=== PATIENT | female | born 1950 | race Caucasian/White ===

== ENCOUNTER 2016-06-03 05:54 | Day surgery (SDC) | payer MEDICARE, OTHER ==
[~2016-06-03] VITALS: Ht 165.1 cm; Wt 95.0 kg
[~2016-06-03 05:54] MED LIST: APIX5TAB PO; ASPI81TA2 PO; ATEN25TA PO; ATORVASTATIN CA80 MG PO; CHOL2000 PO; CHOL500016 PO; DILT180C2 PO; LEVO25TA4 PO; LISI-334 PO; LISI40TA PO; METF500T9 PO; MULT1TAB52 PO; RANI300C PO; ROPI0.5T PO; VENL75TA PO
[2016-06-03] MEDS ORDERED: LIDOCAINE 1% 1 ML SYRINGE. ID PRN (07:00)
[2016-06-03] MEDS ORDERED: FENTANYL PF 100 MCG/2 ML VIAL. IV PRN (07:00)
[2016-06-03] MEDS ORDERED: ONDANSETRON PF 4 MG/2 ML VIAL. IV PRN (07:00)
[2016-06-03] MEDS ORDERED: IV RINGERS,LACTATED 1000ML 1,000 ML IV SCH (07:00)
[2016-06-03] MEDS ORDERED: PROCHLORPERAZINE 10 MG/2 ML VIAL. IV PRN (07:00)
[2016-06-03] MEDS ORDERED: FAMOTIDINE 20 MG/2 ML VIAL ONE (07:08)
[2016-06-03] MEDS ORDERED: LIDOCAINE 2% 100 MG/5 ML DISP.SYRIN. ONE (07:08)
[2016-06-03] MEDS ORDERED: DEXAMETHASONE SOD PHOS 20 MG/5 ML VIAL. ONE (07:08)
[2016-06-03] MEDS ORDERED: ONDANSETRON PF 4 MG/2 ML VIAL. ONE (07:08)
[2016-06-03] MEDS ORDERED: PROPOFOL 20 ML IV ONE (07:08)
[2016-06-03] MEDS ORDERED: FENTANYL PF 100 MCG/2 ML VIAL. ONE ×2 (07:09→08:54)
--- NOTE | 2016-06-03 07:49 | DISCH ---
DISCHARGE INSTRUCTIONS Condition on Discharge Condition on Discharge: Stable Activity After Discharge Activity Instructions for Disc: No restrictions Bathing Instructions: Shower-keep dressing dry Diet after Discharge Diet after Discharge: Diabetic No Calorie Level Wound Incision Care Wound/Incision Care: Ice to area for comfort, Keep wound elevated, Change dressing Other wound/incision instructi: remove dressing 3 days Contacting the after DC Call your doctor for: Concerns you may have Follow-Up Follow up with: Narcisa 10-14 days RAFFAELE ELKINS MD Jun 03, 2016 07:49
[2016-06-03] MEDS ORDERED: HYDR-965 PO (07:51)
[2016-06-03] MEDS ORDERED: CEFAZOLIN 2GM PREMIX 50 ML IV PRN (08:00)
[2016-06-03] MEDS ORDERED: GLYCOPYRROLATE 1 MG/5 ML VIAL. ONE (08:13)
[2016-06-03] MEDS ORDERED: EPHEDRINE PF IN SALINE 50 MG/5 ML DISP.SYRIN. IV ONE (08:15)
[2016-06-03] MEDS ORDERED: SEVOFLURANE > 120 MINUTES. IH ONE (10:05)
[2016-06-03] MEDS: FENTANYL PF 100 MCG/2 ML VIAL. IV PRN ×2 (10:48→11:25)
[2016-06-03] MEDS ORDERED: HYDROCODONE/APAP 7.5/325MG TABLET. PO ONE (11:15)
[2016-06-03 11:36] VITALS: BP 107/51
--- NOTE | 2016-06-03 14:09 | PDOC ---
BRIEF OPERATIVE NOTE Date: Jun 03, 2016 Pre-Op Diagnosis presumed symptomatic hardware s/p ORIF right periprosthetic distal femur fx Post-Op Diagnosis same Procedure Performed screw removal x2 right distal femur Surgeon Narcisa Anesthesia Type: General Blood Loss 25cc Specimens Obtained screws removed Findings above Complications none RAFFAELE ELKINS MD Jun 03, 2016 14:09
--- NOTE | 2016-06-03 18:56 | OP ---
DATE OF SURGERY: 06/03/2016 PREOPERATIVE DIAGNOSES: Presumably symptomatic hardware, medial right knee, status post ORIF, very distal femur periprosthetic fracture above a well-fixated total knee arthroplasty. PREOPERATIVE DIAGNOSES: Presumably symptomatic hardware, medial right knee, status post ORIF, very distal femur periprosthetic fracture above a well-fixated total knee arthroplasty. SURGEON: Rafa Brewster M.D. PROCEDURE: Removal of distal screws x 2. ESTIMATED BLOOD LOSS: About 50 mL. COMPLICATIONS: None. OPERATIVE INDICATIONS: The patient is a 66-year-old female that had a very distal supracondylar right knee fracture above a well-placed total knee arthroplasty that had undergone plate and screw fixation successfully. She has had a difficult time through the rehabilitation process though and is having some difficulty getting her knee flexion back and according to her son, is having significant limitations as well in terms of wanting to put weight on the leg and really getting her strength back. I had gone over with her that while there do appear on her x-rays the possibility of some mild prominence of the hardware along the medial aspect of the knee, I am a little bit skeptical whether this is really the source of her entire problem; however, it is certainly possible and she does have very significant medial symptoms that she is very concerned about and thinks they are impeding her recovery. Certainly on the AP view, there appeared to be 3 screws possibly of concern, 2 more distally, 1 more proximally, but again I really told her that she had a preexisting flexion contracture, I fixed the bone appropriately in anatomic position which would of course not correct the flexion contracture and even her flexion I think is questionable whether it will actually be improved by the procedure of the hardware removal. I cannot really guarantee that her pain would be taken away either necessarily. She understands this and really feels strongly that that is where the pain is coming from and would like to proceed with the hardware removal, having verbalized understanding of the possible medical or other anesthetic complications, infection, among others. All her questions were answered. Consent was obtained and she agrees to proceed with operative evaluation and treatment. OPERATIVE TECHNIQUE: The patient was identified, procedure verified, patient placed in the supine position on the operating table. After adequate amounts of general anesthesia were administered, the right lower extremity was prepped and draped in standard sterile fashion. After timeout was performed, the patient and procedure identified and verified. An incision was made over the distal aspect of the lateral incision. Dissection carried out down to the plate and a guidewire was placed through the screws to further evaluate exactly where which screws may be prominent. It should be noted that among the multiple fluoroscopic views that it was really less chance that there was any hardware actually prominent because they appeared to be in the bone as different views were obtained. Nevertheless, the possibility existed of the 2 most distal screws being very mildly prominent and as we had already talked about this eventuality, proceeded to remove those. I had likewise elected not to replace those screws as the available screws ____ back and for a shorter length, I judged it really would not significantly improve her fixation along with the healing that she had. Therefore, thorough irrigation carried out with normal saline solution. Closure was accomplished with buried #1 Vicryl with the fashion to bury at the skin and subcuticular with Monocryl, Steri-Strips and Mastisol. She was extubated and transferred to postop holding in stable condition having tolerated the procedure well. RAFA BREWSTER MD DR: DANIEL/aidee JOB#: [id number] / [id number]
== END 2016-06-03 12:19 | disposition home or self-care (01) ==
LOC: SURG 05:54
PROVIDERS: ATTEND Orthopaedic Surgery
DX: T85.698A Other mechanical complication of other specified internal prosthetic devices, implants and grafts, initial encounter (principal); I10 Essential (primary) hypertension; E66.9 Obesity, unspecified; K21.9 Gastro-esophageal reflux disease without esophagitis; M19.90 Unspecified osteoarthritis, unspecified site; E11.9 Type 2 diabetes mellitus without complications; F41.9 Anxiety disorder, unspecified; F32.1 Major depressive disorder, single episode, moderate; Z90.710 Acquired absence of both cervix and uterus; Z51.0 Encounter for antineoplastic radiation therapy
CPT/HCPCS: 20680; 76000; 82947; J0690; J0780; J1100; J2405; J2704; J3010; J3490; S0028; J7120

== ENCOUNTER → 2016-11-10 | Outpatient (CLI) | payer MEDICARE, OTHER ==
[~2016-11-10] MED LIST changes: +ASPI-630 PO; -ASPI81TA2 PO; +HYDR-965 PO; +REGADENOSON 0.4 MG/5 ML DISP.SYRIN. IV ONE
--- NOTE | 2016-11-10 12:08 | RAD ---
APPROVED REPORT Test Type: Pharmacological Stress Nurse/Tech: Denice Villarreal R.N. Test Indications: Dyspnea. Cardiac History: CAD, Afib, HTN Medications: SEE EMR Medical History: DM Resting ECG: SB Resting Heart Rate: 53 bpm Resting Blood Pressure: 133/59mmHg Pretest Chest Pain: None Nurse/Tech Notes S1S2, lungs CTA, denied chest pain, SOA or dizziness. Consent: The procedure was explained to the patient in lay terms. Informed consent was witnessed. Tae eout was entered into [employer]. History and Stress Test performed by Denice Villarreal R.N. Pharm. Details Pharmacologic stress testing was performed using 0.4mg per 5ml of regadenoson given intravenously ove r 7-10 seconds. Stress Symptoms Slightly SOA, PINEDA. POST EXERCISE Reason for Termination: Infusion complete Max HR: 96 bpm Max Blood Pressure: 144/58mmHg Blood Pressure response to exercise: Normal blood pressure response during stress. Heart Rate response to exercise: Normal Chest Pain: No. Arrhythmia: Yes. PAC's ST Change: No. INTERPRETATION Stress EKG Conclusion: The resting EKG shows a sinus rhythm with mild nonspecific ST segment changes. The stress EKG shows no significant changes from baseline. No EKG evidence of stress-induced ischemia. Imaging Protocol IMAGE PROTOCOL: Rest Tc-99m/stress Tc-99m 1 day Rest: Stress: Viability: Radiopharm.Tc99m OrndbvxmeVt67e Sestamibi Dwnn32bAq 34mCi Duration 15min. 10min. Img Date 11/10/2016 11/10/2016 Inj-Img Sjuv24dch. 60min. Rest Admin Site:IV - Right HandAdministrator:Gilda Aquino, RT (R)(N) Stress Admin Site: IV - Right HandAdministrator: EDWARD Zuniga, ARRT (R)(N) STRESS DATA End Diast. Vol.95.0mlAv. Heart Rate58.0bpm End Syst. Vol.28.0mlCO Index BSA0.0L/min Myocardial Ixeo844.0gEject. Zpbdqczx97.0% Stress Rates Pk. Fill Rate2.55EDV/secLVtime Pk. Fill 213.66msec Pk. Empty Rate3.33ESV/secLVtime Pk. Lzxen251.22msec 1/3 Pk. Fill1.43EDV/sec Stress Scores Regional WT0.00Summed WT5.00 Regional WM0.00Summed WM0.00 LV Perfusion The stress scans showed no significant defects. The rest scans showed no significant defects. Nuclear imaging shows no reversible ischemia or infarct. Wall Motion Normal left ventricular systolic function with an ejection fraction of greater than 70%. LV Perf. Quant 17 Seg. SSS5.00 17 Seg. SRS4.00 17 Seg. SDS2.00 Stress Defect Extent (% LAD)1.90Rest Defect Extent (% LAD)0.00Rev. Defect Extent (% LAD)1.90 Stress Defect Extent (% LCX) 16.30Rest Defect Extent (% LCX)12.50Rev. Defect Extent (% LCX)5.00 Stress Defect Extent (% RCA)0.00Rest Defect Extent (% RCA)0.00Rev. Defect Extent (% RCA)0.00 Stress Defect Extent (% JOHN)7.80Rest Defect Extent (% JOHN)5.20Rev. Defect Extent (% JOHN)1.70 Conclusion 1. No EKG evidence of stress-induced ischemia. 2. Nuclear imaging shows no reversible ischemia or infarct. 3. Normal left ventricular systolic function with an ejection fraction of greater than 70%. 4. Low risk Lexiscan nuclear stress test.
== END | disposition home or self-care (01) ==
LOC: NM 07:14
PROVIDERS: ATTEND Internal Medicine Cardiovascular Disease
DX: R06.00 Dyspnea, unspecified (principal)
CPT/HCPCS: 78452; 93017; 96374; 96375; 96376; A9500; J2785

== ENCOUNTER 2017-10-19 10:43 | Day surgery (SDC) | payer MEDICARE, OTHER ==
[~2017-10-19 10:43] MED LIST changes: +0.9 % SODIUM CHLORIDE 10 ML DISP.SYRIN. IV; -APIX5TAB PO; -ASPI-630 PO; -ATEN25TA PO; -ATORVASTATIN CA80 MG PO; -CHOL2000 PO; -CHOL500016 PO; -DILT180C2 PO; -HYDR-965 PO; -LEVO25TA4 PO; -LISI-334 PO; -LISI40TA PO; -METF500T9 PO; -MULT1TAB52 PO; -RANI300C PO; -REGADENOSON 0.4 MG/5 ML DISP.SYRIN. IV ONE; -ROPI0.5T PO; -VENL75TA PO
[2017-10-19 11:34] LABS: HEMATOCRIT 36.5 % (36.0-47.0); HEMOGLOBIN 12.4 g/dL (12.0-15.5); MEAN CORPUSCULAR HEMOGLOBIN 31 pg (25-35); MEAN CORPUSCULAR HGB CONC 34 g/dL (31-37); MEAN CORPUSCULAR VOLUME 91 fL (79-100); PLATELET COUNT 157 x10^3/uL (140-400); RED BLOOD COUNT 4.04 x10^6/uL (3.50-5.40); RED CELL DISTRIBUTION WIDTH 14.9 % (11.5-14.5)
[2017-10-19] MEDS: IV RINGERS,LACTATED 1000ML 1,000 ML IV (11:36)
[2017-10-19] MEDS ORDERED: PROPOFOL 20 ML IV (11:53)
[2017-10-19] MEDS ORDERED: LIDOCAINE 2% PF Vial for OR 5 ML VIAL. (11:53)
[2017-10-19 12:06] LABS: ANION GAP 11 (6-14); BLOOD UREA NITROGEN 13 mg/dL (7-20); CALCIUM 8.5 mg/dL (8.5-10.1); CARBON DIOXIDE 25 mmol/L (21-32); CHLORIDE 105 mmol/L (98-107); CREATININE 0.8 mg/dL (0.6-1.0); DIG 0.3 ng/mL (0.9-2.0); GFR 71.1; GLUCOSE 160 mg/dL (70-99); MAGNESIUM 1.5 mg/dL (1.8-2.4); POTASSIUM 4.1 mmol/L (3.5-5.1); SODIUM 141 mmol/L (136-145)
[2017-10-19] MEDS: LIDOCAINE 2% TOPICAL JELLY 5GM TUBE. TP (12:38)
[2017-10-19] MEDS: LIDOCAINE 2% VISCOUS 15 ML SOLUTION. SWSW (12:38)
[2017-10-19] MEDS: BENZOCAINE ONE 20% MUCOSAL SPRAY. MM (12:38)
[2017-10-19] MEDS: MAGNESIUM SULFATE 2GM 50 ML IV (12:39)
== END 2017-10-19 15:56 | disposition home or self-care (01) ==
LOC: SURG 10:43
DX: I48.1 Persistent atrial fibrillation (principal); I34.0 Nonrheumatic mitral (valve) insufficiency; Z88.5 Allergy status to narcotic agent; Z79.82 Long term (current) use of aspirin; Z79.84 Long term (current) use of oral hypoglycemic drugs; Z79.899 Other long term (current) drug therapy; K21.9 Gastro-esophageal reflux disease without esophagitis; Z96.653 Presence of artificial knee joint, bilateral; Z90.710 Acquired absence of both cervix and uterus; Z85.3 Personal history of malignant neoplasm of breast; Z98.42 Cataract extraction status, left eye; Z98.41 Cataract extraction status, right eye; Z96.1 Presence of intraocular lens; Z83.3 Family history of diabetes mellitus; Z80.1 Family history of malignant neoplasm of trachea, bronchus and lung; Z80.3 Family history of malignant neoplasm of breast; Z80.0 Family history of malignant neoplasm of digestive organs; I25.10 Atherosclerotic heart disease of native coronary artery without angina pectoris; E11.36 Type 2 diabetes mellitus with diabetic cataract; I11.0 Hypertensive heart disease with heart failure; I50.9 Heart failure, unspecified; Z79.01 Long term (current) use of anticoagulants; Z87.01 Personal history of pneumonia (recurrent); E66.9 Obesity, unspecified; Z90.13 Acquired absence of bilateral breasts and nipples; M19.90 Unspecified osteoarthritis, unspecified site; F41.9 Anxiety disorder, unspecified; F32.9 Major depressive disorder, single episode, unspecified; Z72.89 Other problems related to lifestyle
CPT/HCPCS: 36415; 76376; 80048; 80162; 83735; 85027; 92960; 93005; 93312; 93320; 93325; J2704; J3475

== ENCOUNTER 2018-02-02 14:44 | Inpatient (IN) | payer MEDICARE, OTHER ==
[~2018-02-02] VITALS: Ht 170.2 cm; Wt 99.8 kg
[~2018-02-02 14:44] MED LIST changes: -0.9 % SODIUM CHLORIDE 10 ML DISP.SYRIN. IV; +AMOX1TAB61 PO; +APIX5TAB PO; +ASPI-630 PO; +ATEN25TA PO; +ATORVASTATIN CA80 MG PO; +BENZ100C PO; +CALC-495 PO; +CALC-496 PO; +CALC600T4 PO; +CETI10TA16 PO; +CHOL2000 PO; +CHOL500016 PO; +DIGO125T PO; +DILT180C2 PO; +DILT180C29 PO; +DRON400T PO; +HYDR-965 PO; +LACT1CAP19 PO; +LEVO25TA4 PO; +LISI-130 PO; +LISI-334 PO; +LORA10TA68 PO; +METF500T9 PO; +METO25TA4 PO; +MONT10TA9 PO; +MULT1TAB52 PO; +PRED-220 PO; +RANI300C PO; +ROPI0.5T PO; +VENL75TA PO
[2018-02-02] MEDS ORDERED: NITROGLYCERIN SUBLINGUAL 0.4 MG BOTTLE OF 25. SL PRN ×2 (15:30→17:30)
[2018-02-02 15:52] LABS: BASO % 1 % (0-3); EOS # 0.1 x10^3/uL (0.0-0.7); EOS % 2 % (0-3); HEMATOCRIT 34.4 % (36.0-47.0); HEMOGLOBIN 11.7 g/dL (12.0-15.5); LYMPH # 1.5 x10^3/uL (1.0-4.8); LYMPH % 18 % (24-48); MEAN CORPUSCULAR HEMOGLOBIN 30 pg (25-35); MEAN CORPUSCULAR HGB CONC 34 g/dL (31-37); MEAN CORPUSCULAR VOLUME 89 fL (79-100); MONO # 0.7 x10^3/uL (0.0-1.1); MONO % 8 % (0-9); NEUT % 72 % (31-73); PLATELET COUNT 161 x10^3/uL (140-400); RED BLOOD COUNT 3.89 x10^6/uL (3.50-5.40); RED CELL DISTRIBUTION WIDTH 16.3 % (11.5-14.5); WHITE BLOOD COUNT 8.4 x10^3/uL (4.0-11.0)
[2018-02-02 16:01] LABS: CALCIUM 9.6 mg/dL (8.5-10.1)
--- NOTE | 2018-02-02 16:01 | PHYS DOC ---
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 fib , high cholesterol, who presents today complaining of 8 out of 10 left sided chest pain that began 4 days ago after she had an ablation procedure at [facility]. Patient states the pain is worse when she takes a deep breath. She is also complaining of a cough. She states the cough began 4 days ago after having the ablation. She states she believes her symptoms right now are putting her back into A. fib. She states she took aspirin as well as a Eliquis this morning. She states she is not attending any relief of her chest pain. PCP Dr. Chito Tobin [employer] at [facility] Review of Systems Review of Systems Constitutional: Denies fever or chills [] Eyes: Denies change in visual acuity, redness, or eye pain [] HENT: Denies nasal congestion or sore throat [] Respiratory: Reports cough, shortness of breath [] Cardiovascular: Reports left-sided chest pain GI: Denies abdominal pain, nausea, vomiting, bloody stools or diarrhea [] : Denies dysuria or hematuria [] Musculoskeletal: Denies back pain or joint pain [] Integument: Denies rash or skin lesions [] Neurologic: Denies headache, focal weakness or sensory changes [] All other systems were reviewed and found to be within normal limits, except as documented in this note. Current Medications Current Medications Current Medications Medications (Trade) Dose Ordered Sig/Peggy Start Time Stop Time Status Last Admin Dose Admin Diltiazem HCl (Cardizem 24hr Cd) 180 mg 1X STAT 02/02/18 15:32 02/02/18 15:33 DC 02/02/18 15:52 180 MG Magnesium Sulfate 50 ml @ 25 mls/hr 1X ONCE 02/02/18 16:30 02/02/18 18:29 02/02/18 16:42 25 MLS/HR Magnesium Sulfate/ Dextrose 100 ml @ 100 mls/hr 1X ONCE 02/02/18 16:45 02/02/18 17:44 UNV Nitroglycerin (Nitrostat) 0.4 mg PRN Q5MIN PRN 02/02/18 15:30 02/02/18 15:53 0.4 MG Allergies Allergies Allergies Coded Allergies Type Severity Reaction Last Updated Verified morphine Allergy Severe SOB, ANAPHYLAXIS 11/27/17 Yes Physical Exam Physical Exam Constitutional: Well developed, well nourished, no acute distress, non-toxic appearance. [] HENT: Normocephalic, atraumatic, bilateral external ears normal, oropharynx moist, no oral exudates, nose normal. [] Eyes: PERRLA, EOMI, conjunctiva normal, no discharge. [] Neck: Normal range of motion, no tenderness, supple, no stridor. [] Cardiovascular: Irregular rhythm, no murmur [] Lungs & Thorax: Bilateral breath sounds clear to auscultation [] Abdomen: Bowel sounds normal, soft, no tenderness, no masses, no pulsatile masses. [] Skin: Warm, dry, no erythema, no rash. [] Back: No tenderness, no CVA tenderness. [] Extremities: No tenderness, no cyanosis, no clubbing, ROM intact, no edema. [] Neurologic: Alert and oriented X 3, normal motor function, normal sensory function, no focal deficits noted. [] Psychologic: Affect normal, judgement normal, mood normal. [] Current Patient Data Vital Signs Vital Signs Date Time Temp Pulse Resp B/P (MAP) Pulse Ox O2 Delivery O2 Flow Rate FiO2 02/02/18 15:53 90 145/77 02/02/18 15:09 98.1 20 96 Room Air 98.1 Lab Values Laboratory Tests Test 02/02/18 15:35 White Blood Count 8.4 x10^3/uL (4.0-11.0) Red Blood Count 3.89 x10^6/uL (3.50-5.40) Hemoglobin 11.7 g/dL (12.0-15.5) L Hematocrit 34.4 % (36.0-47.0) L Mean Corpuscular Volume 89 fL (79-100) Mean Corpuscular Hemoglobin 30 pg (25-35) Mean Corpuscular Hemoglobin Concent 34 g/dL (31-37) Red Cell Distribution Width 16.3 % (11.5-14.5) H Platelet Count 161 x10^3/uL (140-400) Neutrophils (%) (Auto) 72 % (31-73) Lymphocytes (%) (Auto) 18 % (24-48) L Monocytes (%) (Auto) 8 % (0-9) Eosinophils (%) (Auto) 2 % (0-3) Basophils (%) (Auto) 1 % (0-3) Neutrophils # (Auto) 6.0 x10^3uL (1.8-7.7) Lymphocytes # (Auto) 1.5 x10^3/uL (1.0-4.8) Monocytes # (Auto) 0.7 x10^3/uL (0.0-1.1) Eosinophils # (Auto) 0.1 x10^3/uL (0.0-0.7) Basophils # (Auto) 0.0 x10^3/uL (0.0-0.2) Sodium Level 137 mmol/L (136-145) Potassium Level 4.0 mmol/L (3.5-5.1) Chloride Level 102 mmol/L (98-107) Carbon Dioxide Level 29 mmol/L (21-32) Anion Gap 6 (6-14) Blood Urea Nitrogen 18 mg/dL (7-20) Creatinine 1.0 mg/dL (0.6-1.0) Estimated GFR (Cockcroft-Gault) 55.0 BUN/Creatinine Ratio 18 (6-20) Glucose Level 143 mg/dL (70-99) H Calcium Level 9.6 mg/dL (8.5-10.1) Magnesium Level 1.5 mg/dL (1.8-2.4) L Total Bilirubin 0.4 mg/dL (0.2-1.0) Aspartate Amino Transferase (AST) 23 U/L (15-37) Alanine Aminotransferase (ALT) 44 U/L (14-59) Alkaline Phosphatase 93 U/L (46-116) Creatine Kinase 45 U/L (26-192) Creatine Kinase MB (Mass) < 0.5 ng/mL (0.0-3.6) Creatine Kinase MB Relative Index % (0-4) Troponin I Quantitative 0.286 ng/mL (0.000-0.055) PK-Epk-Q-Type Natriuretic Peptide 2354 pg/mL (0-124) H Total Protein 7.2 g/dL (6.4-8.2) Albumin 3.3 g/dL (3.4-5.0) L Albumin/Globulin Ratio 0.8 (1.0-1.7) L Thyroid Stimulating Hormone (TSH) 3.390 uIU/mL (0.358-3.74) Laboratory Tests 02/02/18 15:35 Laboratory Tests 02/02/18 15:35 EKG EKG 15:[address] Patricio archuleta heart rate 94 no STEMI.[] Radiology/Procedures Radiology/Procedures []PROCEDURE: PORTABLE CHEST 1V PORTABLE CHEST 1V Clinical indications: PT. STATES IN ATRIAL FIBRILLATION, HAD ablation DONE THURSDAY, HAVING SOME CHEST PAIN AGAIN. COMPARISON: September 17, 2017 chest x-ray. Findings: Decreased lung volumes are again evident. No acute lung infiltrate or pleural effusion or pulmonary edema or lung mass or pneumothorax is seen. The heart size, pulmonary vasculature, mediastinum and both radha are stable. Impression: No acute radiographic abnormality is seen. Electronically signed by: Erasmo Vance MD (02/02/2018 4:09 PM) [facility] DICTATED and SIGNED BY: ERASMO VANCE MD DATE: 02/02/18 1608 Course & Med Decision Making Course & Med Decision Making Pertinent Labs and Imaging studies reviewed. (See chart for details) This is a 67-year-old female patient presenting to the ED today complaining of left-sided chest pain worse on deep breaths that began yesterday. Patient is also complaining of a cough that began 4 days ago after having an ablation procedure Patient has a troponin of 0.286. She had an ablation 4 days ago. She has been in A. fib since arrival to the ED with HR in the 70s-115s. We gave Diltazem. She already had an aspirin. Chest x-rays negative for any acute findings. CBC no acute findings, CMP with magnesium of 1.5. She'll be given magnesium in the ED. 16:24 Consulted with Marga SENIOR for cardiology, and they will follow-up with patient tomorrow. 16:42 Dr. Clifford accepted patient for admission. Dragon Disclaimer Dragon Disclaimer This electronic medical record was generated, in whole or in part, using a voice recognition dictation system. Departure Departure Impression: Primary Impression: Atrial fibrillation Additional Impressions: Chest pain Elevated troponin Disposition: ADMITTED INPATIENT Condition: STABLE Referrals: CHITO TOBIN MD (PCP) Problem Qualifiers Primary Impression: Atrial fibrillation Atrial fibrillation type: unspecified Qualified Codes: I48.91 - Unspecified atrial fibrillation Additional Impressions: Chest pain Chest pain type: unspecified Qualified Codes: R07.9 - Chest pain, unspecified CHINTAN NGUYEN [employer] MACHINE OPERATOR Feb 02, 2018 16:01
[2018-02-02 16:07] LABS: ALBUMIN 3.3 g/dL (3.4-5.0); ALBUMIN/GLOBULIN RATIO 0.8 (1.0-1.7); MAGNESIUM 1.5 mg/dL (1.8-2.4); TOTAL BILIRUBIN 0.4 mg/dL (0.2-1.0); TOTAL PROTEIN 7.2 g/dL (6.4-8.2)
--- NOTE | 2018-02-02 16:12 | RAD ---
PORTABLE CHEST 1V Clinical indications: PT. STATES IN ATRIAL FIBRILLATION, HAD ablation DONE THURSDAY, HAVING SOME CHEST PAIN AGAIN. COMPARISON: September 17, 2017 chest x-ray. Findings: Decreased lung volumes are again evident. No acute lung infiltrate or pleural effusion or pulmonary edema or lung mass or pneumothorax is seen. The heart size, pulmonary vasculature, mediastinum and both radha are stable. Impression: No acute radiographic abnormality is seen. Electronically signed by: Dano Vance MD (02/02/2018 4:09 PM) [place] [id number]
[2018-02-02 16:15] LABS: CREATINE KINASE 45 U/L (26-192)
[2018-02-02] MEDS ORDERED: MAGNESIUM SULFATE 2GM 50 ML IV ONE (16:30)
--- NOTE | 2018-02-02 16:30 | PDOC2 ---
LEROY BUTTERFIELD FOOD SERVICE HELPER 02/02/18 1630: CARDIAC CONSULT DATE OF CONSULT Date of Consult DATE: 02/02/18 TIME: 16:29 REASON FOR CONSULT Reason for Consult: chest pain REFERRING PHYSICIAN Referring Physician: Magali SOURCE Source: Chart review, Patient HISTORY OF PRESENT ILLNESS HISTORY OF PRESENT ILLNESS This is a pleasant 67 yo female admitted for complains of chest pain. She has hx of PAFIB with failed past cardioversion and was treated with multaq and reseumed post ablation. Reports that she had a cardiac ablation for her AFIB to which she converted to SR per her recollection and discharged he following day. It ppears that she tolerated the procedure but was having some chest pain that Thursday and was told to take ibuprofen. She has had intermittent chest pain since then described as sharp mid chest but nonradiating. She started having some orthopnea Thursday and was having sensation of palpitations. Reports of slowly progressing SOA with exertion. At times she felt dizzy and complains of not able to keep her balance but no vertigo. No visual or auditory disturbances and no mention of slured speech or PINED[place]. Today she felt more SOA and still has some CP and did not sleep much last night. Again positive for orthopnea and cough and sometimes feeling some wheeze. No leg edema. She then went to her appointment with her PCP and was noted with fast HR and was further checked and was noted with AFIB RVR and was given an extra dose of metoprolol and was advised to come to ED. PAST MEDICAL HISTORY Cardiovascular: AFIB, HTN, Hyperlipidemia Pulmonary: No pertinent hx CENTRAL NERVOUS SYSTEM: Migraine, Other (RLS) Heme/Onc: Cancer (breast) Hepatobiliary: No pertinent hx Psych: No pertinent hx Musculoskeletal: Osteoarthritis Rheumatologic: No pertinent hx Infectious disease: No pertinent hx ENT: Allergic Rhinitis, Other (cataract) Renal/: Urinary Incontinence Endocrine: Diabetes (2), Hypothyroidism Dermatology: No pertinent hx PAST SURGICAL HISTORY Past Surgical History: Arthroscopy (ORIF right femur), Cataract Removal, Mastectomy (bilateral), Total knee replacement (bilateral ), Hysterectomy, Other (cardiac ablation; [facility] 2011) FAMILY HISTORY Family History: Heart Disease (mother) SOCIAL HISTORY Smoke: No ALCOHOL: none Drugs: None Lives: Alone CURRENT MEDICATIONS CURRENT MEDICATIONS Current Medications Medications (Trade) Dose Ordered Sig/Peggy Route PRN Reason Start Time Stop Time Status Last Admin Dose Admin Diltiazem HCl (Cardizem 24hr Cd) 180 mg 1X STAT PO 02/02/18 15:32 02/02/18 15:33 DC 02/02/18 15:52 Nitroglycerin (Nitrostat) 0.4 mg PRN Q5MIN PRN SL CHEST PAIN 02/02/18 15:30 02/02/18 15:53 ALLERGIES ALLERGIES: Coded Allergies: morphine (Verified Allergy, Severe, SOB, ANAPHYLAXIS, 11/27/17) ROS Review of System 14 point ROS evaluated with pertinent positives noted per HPI PHYSICAL EXAM General: Alert, Oriented X3, Cooperative, No acute distress HEENT: Atraumatic, Mucous membr. moist/pink Lungs: Clear to auscultation, Normal air movement Heart: Other (AFIB) Abdomen: Soft, No tenderness Extremities: Other (trace LE edema) Skin: No breakdown, No significant lesion Neuro: Normal speech, Sensation intact Psych/Mental Status: Mental status NL, Mood NL MUSCULOSKELETAL: Osteoarthritic changes both hands VITALS VITALS Vital Signs Date Time Temp Pulse Resp B/P (MAP) Pulse Ox O2 Delivery O2 Flow Rate FiO2 02/02/18 15:53 90 145/77 02/02/18 15:09 98.1 20 96 Room Air 98.1 LABS Lab: Laboratory Tests Test 02/02/18 15:35 White Blood Count 8.4 x10^3/uL (4.0-11.0) Red Blood Count 3.89 x10^6/uL (3.50-5.40) Hemoglobin 11.7 g/dL (12.0-15.5) Hematocrit 34.4 % (36.0-47.0) Mean Corpuscular Volume 89 fL (79-100) Mean Corpuscular Hemoglobin 30 pg (25-35) Mean Corpuscular Hemoglobin Concent 34 g/dL (31-37) Red Cell Distribution Width 16.3 % (11.5-14.5) Platelet Count 161 x10^3/uL (140-400) Neutrophils (%) (Auto) 72 % (31-73) Lymphocytes (%) (Auto) 18 % (24-48) Monocytes (%) (Auto) 8 % (0-9) Eosinophils (%) (Auto) 2 % (0-3) Basophils (%) (Auto) 1 % (0-3) Neutrophils # (Auto) 6.0 x10^3uL (1.8-7.7) Lymphocytes # (Auto) 1.5 x10^3/uL (1.0-4.8) Monocytes # (Auto) 0.7 x10^3/uL (0.0-1.1) Eosinophils # (Auto) 0.1 x10^3/uL (0.0-0.7) Basophils # (Auto) 0.0 x10^3/uL (0.0-0.2) Sodium Level 137 mmol/L (136-145) Potassium Level 4.0 mmol/L (3.5-5.1) Chloride Level 102 mmol/L (98-107) Carbon Dioxide Level 29 mmol/L (21-32) Anion Gap 6 (6-14) Blood Urea Nitrogen 18 mg/dL (7-20) Creatinine 1.0 mg/dL (0.6-1.0) Estimated GFR (Cockcroft-Gault) 55.0 BUN/Creatinine Ratio 18 (6-20) Glucose Level 143 mg/dL (70-99) Calcium Level 9.6 mg/dL (8.5-10.1) Magnesium Level 1.5 mg/dL (1.8-2.4) Total Bilirubin 0.4 mg/dL (0.2-1.0) Aspartate Amino Transf (AST/SGOT) 23 U/L (15-37) Alanine Aminotransferase (ALT/SGPT) 44 U/L (14-59) Alkaline Phosphatase 93 U/L (46-116) Creatine Kinase 45 U/L (26-192) Creatine Kinase MB (Mass) < 0.5 ng/mL (0.0-3.6) Creatine Kinase MB Relative Index % (0-4) Troponin I Quantitative 0.286 ng/mL (0.000-0.055) ZZ-Otq-U-Type Natriuretic Peptide 2354 pg/mL (0-124) Total Protein 7.2 g/dL (6.4-8.2) Albumin 3.3 g/dL (3.4-5.0) Albumin/Globulin Ratio 0.8 (1.0-1.7) Thyroid Stimulating Hormone (TSH) 3.390 uIU/mL (0.358-3.74) ECHOCARDIOGRAM ECHOCARDIOGRAM GERARDO LEFT VENTRICLE The left ventricle is normal size. There is normal left ventricular wall thickness. The systolic function is mildly impaired. EF 45-50% There is normal LV segmental wall motion. No left ventricle thrombus noted on this study. RIGHT VENTRICLE The right ventricle is normal size. The right ventricular systolic function is normal. ATRIA The left atrium is moderately dilated. The right atrium is moderately dilated. The interatrial septum is intact with no evidence for an atrial septal defect or patent foramen ovale as noted on 2-D or Doppler imaging. There is no thrombus noted in the left atrial appendage. AORTIC VALVE The aortic valve is normal in structure and function. Doppler and Color Flow revealed no significant aortic regurgitation. There is no significant aortic valvular stenosis. MITRAL VALVE The mitral valve is normal in structure and function. There is no mitral valve stenosis. Doppler and Color Flow revealed no mitral valve regurgitation noted. TRICUSPID VALVE The tricuspid valve is normal in structure and function. Doppler and Color Flow revealed no tricuspid valve regurgitation noted. There is no tricuspid valve prolapse or vegetation. There is no tricuspid valve stenosis. PULMONIC VALVE The pulmonary valve is normal in structure and function. Doppler and Color Flow revealed no pulmonic valvular regurgitation. There is no pulmonic valvular stenosis. GREAT VESSELS The aortic root is normal in size. The IVC is normal in size and collapses >50% with inspiration. Critical Notification Critical Value: No <Conclusion> The systolic function is mildly impaired. EF 45-50% There is no thrombus noted in the left atrial appendage. Successful cardioversion to SR. DATE: 11/27/17 1543 STRESS TEST STRESS TEST Conclusion 1. No EKG evidence of stress-induced ischemia. 2. Nuclear imaging shows no reversible ischemia or infarct. 3. Normal left ventricular systolic function with an ejection fraction of greater than 70%. 4. Low risk Lexiscan nuclear stress test. DATE: 11/10/16 1207 ASSESSMENT/PLAN ASSESSMENT/PLAN 1. Chest pain: mixed features. possibly induced by AFIB 2. Refractory Afib with RVR 3. S/P cardiac ablation for afib: 01/29/2018 4. Elevated troponin: possibly demand mediated 5. Diastolic CHF 6. HTN 7. DM2/HLP Recommendations 1. Received extra metoprolol and cardizem cd given 2. Hold eliquis for now, start heparin drip. Replace Mg 3. Further workup pending EP report and CTA result and will rule out dissection. 4. trend troponin, tsh. bmp and Mg in am. 5. metoprolol q6. WADE CARDONA MD 02/02/18 2921: CARDIAC CONSULT ASSESSMENT/PLAN ASSESSMENT/PLAN Pt. seen and examined. Agree with above ASSISTANT PROFESSOR SCULPTURE note with following comments: Patient with discomfort similar to when she has had her prior episodes. No suspicion for dissection, CT ordered for unclear reasons is negative. Discussed with EP services. Continue multaq. Stop heparin, restart eliquis. PLan for CVN in 24 hours. Thanks. LEROY BUTTERFIELD APRN Feb 02, 2018 16:30 WADE CARDONA MD Feb 02, 2018 21:42
--- NOTE | 2018-02-02 16:31 | EKG ---
[facility] [address] [place] [address] Test Date: 2018-02-02 Test Time: 15:06:14 Pat Name: ARVIN LENNON Department: Room: Gender: F Clinical Engineering Manager: : [id number] Requested By: CHINTAN NGUYEN Order Number: [id number] Reading MD: Berlin Haji MD Measurements Intervals [place] Rate: 94 P: RI: QRS: 83 QRSD: 88 T: 64 QT: 374 QTc: 473 Interpretive Statements ATRIAL FIBRILLATION WITH RVR Electronically Signed On 02-03-2018 2:26:56 CDT by Berlin Haji MD
[2018-02-02] MEDS ORDERED: MAGNESIUM SULFATE 1GM 100 ML IV ONE (16:45)
[2018-02-02 16:58] LABS: PROTHROMBIN TIME PATIENT 15.8 SEC (11.7-14.0)
[2018-02-02 17:09] LABS: BILIRUBIN,URINE NEGATIVE (NEG); CLARITY,URINE CLEAR; COLOR,URINE YELLOW; NITRITE,URINE NEGATIVE (NEG); PROTEIN,URINE NEGATIVE (NEG-TRACE); UROBILINOGEN,URINE 0.2 mg/dL (0.2 mg/dL)
[2018-02-02] MEDS ORDERED: IOHEXOL 300 MG/ML 100ML VIAL. IV ONE (17:15)
[2018-02-02] MEDS ORDERED: CONTRAST GIVEN. MC PRN (17:15)
[2018-02-02 17:16] LABS: BARBITURATES NEG (NEG); BENZODIAZEPINES NEG (NEG); CANNABINOIDS NEG (NEG); COCAINE NEG (NEG); METHADONE NEG (NEG); OPIATES NEG (NEG); PHENCYCLIDINE NEG (NEG)
[2018-02-02 17:19] LABS: AMPHETAMINE/METHAMPHETAMINE NEG (NEG)
[2018-02-02] MEDS ORDERED: ONDANSETRON PF 4 MG/2 ML VIAL. IV PRN (17:30)
[2018-02-02] MEDS ORDERED: fentaNYL PF VIAL 100 MCG/2 ML VIAL IV PRN (17:30)
[2018-02-02 17:31] LABS: BACTERIA,URINE FEW /HPF (0-FEW); RBC,URINE 0 /HPF (0-2); SQUAMOUS EPITHELIAL CELL,UR MOD /LPF; WBC,URINE OCC /HPF (0-4)
--- NOTE | 2018-02-02 17:44 | RAD ---
Examination: CT angiography chest abdomen pelvis without and with IV contrast Exposure: One or more of the following individualized dose reduction techniques were utilized for this examination: 1. Automated exposure control 2. Adjustment of the mA and/or kV according to patient size 3. Use of iterative reconstruction technique HISTORY: History of chest pain, aortic dissection COMPARISON: CT angiogram of the chest from 09/18/2017 TECHNIQUE: Axial CT angiographic images of the chest abdomen pelvis were performed without and with IV contrast. Coronal and sagittal 3-D MIP reformats are performed. Volumetric 3-D reformats of the aorta was performed throughout. FINDINGS: The visualized thyroid gland grossly appears unremarkable. The central airways are patent. Mild cardiomegaly. Trace pericardial effusion identified. The caliber of the aorta grossly appears unremarkable. No evidence of aortic dissection identified. Mild to moderate aortic atherosclerosis. Coronary artery calcifications identified. There is common origin of the right innominate and the left common carotid artery. Mild atherosclerotic calcifications identified in the origin of the left subclavian artery. The celiac artery, superior mesenteric artery, bilateral renal arteries, inferior mesenteric arteries are patent. The bilateral kidneys enhance symmetrically. The bilateral common iliac arteries demonstrate mild atherosclerotic calcifications. The bilateral external and internal iliac arteries are patent. Small right pleural effusion identified. There are patchy airspace opacities identified in the right lower lobe of the lung and in the left lower lobe of the lung likely atelectasis or infiltrates. Tiny 5 mm nodule identified in the right upper lobe of the lung. There is a 4.5 mm nodule identified in the right lower lobe of the lungs similar to prior exam. 4 mm nodule identified in the left lower lobe of the lungs similar to prior exam. Diffuse decreased attenuation noted throughout the liver likely hepatic steatosis. There is thickened appearance of the gallbladder wall. The visualized spleen, adrenals grossly appears unremarkable. The visualized pancreas grossly appears unremarkable. The small bowel is nondilated. Stomach is mildly distended. The appendix is normal. Feces and gas noted in the colon. The urinary bladder is mildly distended. There is mild thickened appearance of the urinary bladder wall with surrounding inflammatory fat stranding. Moderate degenerative changes lumbar spine. IMPRESSION: 1. No evidence of aortic dissection. 2. Coronary artery calcifications. Trace pericardial effusion. 3. Thickened appearance of the gallbladder wall. Cholecystitis is not excluded. Ultrasound right upper quadrant is recommended. 4. Mild thickened appearance of the wall of the urinary bladder with surrounding mild inflammatory fat stranding. Cystitis is a possibility. Correlate with urine analysis. 5. Mild hepatic steatosis. 6. Small right pleural effusion with bibasilar lung airspace opacities likely atelectasis or infiltrates. 7. Unchanged solid pulmonary nodules with the largest measuring 4.5 mm in the right lower lobe of the lung. Electronically signed by: Guero Griffith MD (02/02/2018 5:41 PM) [facility]
[2018-02-02] MEDS ORDERED: HEPARIN 25,000UTS/500ML PREMIX 500 ML IV PRN (18:00)
[2018-02-02] MEDS ORDERED: HEPARIN for IV BOLUS 10,000 UNIT/10 ML VIAL. IV PRN (18:00)
[2018-02-02 19:35] VITALS: BP 106/67
[2018-02-02] MEDS: METOPROLOL TART IMMED RELEASE 25 MG TABLET. PO SCH ×2 (19:37→23:10)
--- NOTE | 2018-02-02 22:35 | PDOC1 ---
History and Physical Date of Admission Date of Admission DATE: 02/02/18 TIME: 22:34 Past Medical History Past Medical History PAST MEDICAL HISTORY obesity Cardiovascular: AFIB, HTN, Hyperlipidemia Pulmonary: No pertinent hx CENTRAL NERVOUS SYSTEM: Migraine, Other (RLS) Heme/Onc: Cancer (breast) Hepatobiliary: No pertinent hx Psych: No pertinent hx Musculoskeletal: Osteoarthritis Rheumatologic: No pertinent hx Infectious disease: No pertinent hx ENT: Allergic Rhinitis, Other (cataract) Renal/: Urinary Incontinence Endocrine: Diabetes (2), Hypothyroidism Dermatology: No pertinent hx PAST SURGICAL HISTORY Past Surgical History: Arthroscopy (ORIF right femur), Cataract Removal, Mastectomy (bilateral), Total knee replacement (bilateral ), Hysterectomy, Other (cardiac ablation; [facility] 2011) FAMILY HISTORY Family History: Heart Disease (mother) SOCIAL HISTORY Smoke: No ALCOHOL: none Drugs: None Lives: Alone Cardiovascular: AFIB, HTN, Hyperlipidemia Pulmonary: No pertinent hx CENTRAL NERVOUS SYSTEM: Migraine, Other (RLS) GI: GERD Heme/Onc: Cancer (breast) Hepatobiliary: No pertinent hx Psych: No pertinent hx Musculoskeletal: Osteoarthritis Rheumatologic: No pertinent hx Infectious disease: No pertinent hx ENT: Allergic Rhinitis, Other (cataract) Renal/: Urinary Incontinence Endocrine: Diabetes (2), Hypothyroidism Dermatology: No pertinent hx Past Surgical History Past Surgical History: Arthroscopy (ORIF right femur), Cataract Removal, Mastectomy (bilateral), Total knee replacement (bilateral ), Hysterectomy, Other (cardiac ablation; [facility] 2011) Family History Family History: Heart Disease (mother) Social History Smoke: No ALCOHOL: none Drugs: None Current Problem List Problem List Problems Medical Problems: (1) Atrial fibrillation Status: Acute (2) Chest pain Status: Acute (3) Elevated troponin Status: Acute Current Medications Current Medications Current Medications Diltiazem HCl (Cardizem 24hr Cd) 180 mg 1X STAT PO Last administered on at 15:52; Start 02/02/18 at 15:32; Stop 02/02/18 at 15:33; Status DC Nitroglycerin (Nitrostat) 0.4 mg PRN Q5MIN PRN SL CHEST PAIN Last administered on 02/02/18at 15:53; Start 02/02/18 at 15:30 Magnesium Sulfate 50 ml @ 25 mls/hr 1X ONCE IV Last administered on 02/02/18at 16:42; Start 02/02/18 at 16:30; Stop 02/02/18 at 18:29; Status DC Magnesium Sulfate/ Dextrose 100 ml @ 100 mls/hr 1X ONCE IV ; Start 02/02/18 at 16:45; Stop 02/02/18 at 17:44; Status UNV Iohexol (Omnipaque 300 Mg/ml) 75 ml 1X ONCE IV Last administered on 02/02/18at 17:16; Start 02/02/18 at 17:15; Stop 02/02/18 at 17:16; Status DC Info (CONTRAST GIVEN -- Rx MONITORING) 1 each PRN DAILY PRN MC SEE COMMENTS; Start 02/02/18 at 17:15; Stop 02/04/18 at 17:14 Ondansetron HCl (Zofran) 4 mg PRN Q8HRS PRN IV NAUSEA/VOMITING; Start 02/02/18 at 17:30; Stop 02/03/18 at 17:29 Fentanyl Citrate (Fentanyl 2ml Vial) 50 mcg PRN Q2HR PRN IV PAIN; Start at 17:30; Stop 02/03/18 at 17:29 Nitroglycerin (Nitrostat) 0.4 mg PRN Q5MIN PRN SL CHEST PAIN; Start 02/02/18 at 17:30; Stop 02/02/18 at 17:30; Status DC Metoprolol Tartrate (Lopressor) 25 mg Q6HRS PO Last administered on 02/02/18at 19 :37; Start 02/02/18 at 18:00 Heparin Sodium/ Dextrose 500 ml @ 0 mls/hr CONT PRN IV SEE I/O RECORD Last administered on 02/02/18at 19:35; Start 02/02/18 at 18:00; Stop 02/02/18 at 21:48; Status DC Heparin Sodium (Porcine) (Heparin Sodium) 2,500 unit PRN Q6HRS PRN IV FOR UFH LEVEL LESS THAN 0.2; Start 02/02/18 at 18:00; Stop 02/02/18 at 21:48; Status DC Dronedarone (Multaq) 400 mg BIDWMEALS PO ; Start 02/02/18 at 22:00 Apixaban (Eliquis) 5 mg BID PO ; Start 02/02/18 at 22:00 Info (Anti-Coagulation Monitoring By Pharmacy) 1 each PRN DAILY PRN MC SEE COMMENTS; Start 02/02/18 at 22:00 Active Scripts Active Reported Claritin (Loratadine) 10 Mg Tablet 10 Mg PO PRN DAILY PRN Multaq (Dronedarone Hcl) 400 Mg Tablet 1 Tab PO BID Calcium 600 + Vit D 800 Tab (Calcium Carbonate/Vitamin D3) 1 Each Tablet 1 Each PO BID Diltiazem 24HR Cd (Diltiazem Hcl) 180 Mg Cap.er.24h 180 Mg PO DAILY16 Metoprolol Tartrate 25 Mg Tablet 1 Tab PO BID Levothyroxine Sodium 25 Mcg Tablet 1 Tab PO DAILY Eliquis (Apixaban) 5 Mg Tablet 5 Mg PO BID Ranitidine Hcl 300 Mg Capsule 300 Mg PO DAILY PRN Atorvastatin Calcium 80 Mg Tablet 80 Mg PO HS Aspirin 81 Mg Tab.chew 81 Mg PO DAILY16 Lisinopril 40 Mg Tablet 40 Mg PO DAILY Requip (Ropinirole Hcl) 0.5 Mg Tablet 1 Tab PO QHS PRN Metformin Hcl Er (Metformin Hcl) 500 Mg Tab.er.24h 1 Tab PO BIDWMEALS Allergies Allergies: Coded Allergies: morphine (Verified Allergy, Severe, SOB, ANAPHYLAXIS, 11/27/17) Vitals Vitals Vital Signs Date Time Temp Pulse Resp B/P (MAP) Pulse Ox O2 Delivery O2 Flow Rate FiO2 02/02/18 20:06 Room Air 02/02/18 19:37 100 106/67 02/02/18 19:35 97.8 18 93 97.8 Labs Labs Laboratory Tests Test 02/02/18 15:35 02/02/18 16:30 02/02/18 17:02 02/02/18 19:15 White Blood Count 8.4 x10^3/uL (4.0-11.0) Red Blood Count 3.89 x10^6/uL (3.50-5.40) Hemoglobin 11.7 g/dL (12.0-15.5) Hematocrit 34.4 % (36.0-47.0) Mean Corpuscular Volume 89 fL (79-100) Mean Corpuscular Hemoglobin 30 pg (25-35) Mean Corpuscular Hemoglobin Concent 34 g/dL (31-37) Red Cell Distribution Width 16.3 % (11.5-14.5) Platelet Count 161 x10^3/uL (140-400) Neutrophils (%) (Auto) 72 % (31-73) Lymphocytes (%) (Auto) 18 % (24-48) Monocytes (%) (Auto) 8 % (0-9) Eosinophils (%) (Auto) 2 % (0-3) Basophils (%) (Auto) 1 % (0-3) Neutrophils # (Auto) 6.0 x10^3uL (1.8-7.7) Lymphocytes # (Auto) 1.5 x10^3/uL (1.0-4.8) Monocytes # (Auto) 0.7 x10^3/uL (0.0-1.1) Eosinophils # (Auto) 0.1 x10^3/uL (0.0-0.7) Basophils # (Auto) 0.0 x10^3/uL (0.0-0.2) Sodium Level 137 mmol/L (136-145) Potassium Level 4.0 mmol/L (3.5-5.1) Chloride Level 102 mmol/L (98-107) Carbon Dioxide Level 29 mmol/L (21-32) Anion Gap 6 (6-14) Blood Urea Nitrogen 18 mg/dL (7-20) Creatinine 1.0 mg/dL (0.6-1.0) Estimated GFR (Cockcroft-Gault) 55.0 BUN/Creatinine Ratio 18 (6-20) Glucose Level 143 mg/dL (70-99) Calcium Level 9.6 mg/dL (8.5-10.1) Magnesium Level 1.5 mg/dL (1.8-2.4) Total Bilirubin 0.4 mg/dL (0.2-1.0) Aspartate Amino Transf (AST/SGOT) 23 U/L (15-37) Alanine Aminotransferase (ALT/SGPT) 44 U/L (14-59) Alkaline Phosphatase 93 U/L (46-116) Creatine Kinase 45 U/L (26-192) Creatine Kinase MB (Mass) < 0.5 ng/mL (0.0-3.6) Creatine Kinase MB Relative Index % (0-4) Troponin I Quantitative 0.286 ng/mL (0.000-0.055) 0.261 ng/mL (0.000-0.055) BU-Tzi-X-Type Natriuretic Peptide 2354 pg/mL (0-124) Total Protein 7.2 g/dL (6.4-8.2) Albumin 3.3 g/dL (3.4-5.0) Albumin/Globulin Ratio 0.8 (1.0-1.7) Thyroid Stimulating Hormone (TSH) 3.390 uIU/mL (0.358-3.74) Prothrombin Time 15.8 SEC (11.7-14.0) Prothromb Time International Ratio 1.3 (0.8-1.1) Urine Collection Type Unknown Urine Color Yellow Urine Clarity Clear Urine pH 7.0 Urine Specific [place] 1.015 Urine Protein Negative mg/dL (NEG-TRACE) Urine Glucose (UA) Negative mg/dL (NEG) Urine Ketones (Stick) Negative mg/dL (NEG) Urine Blood Negative (NEG) Urine Nitrite Negative (NEG) Urine Bilirubin Negative (NEG) Urine Urobilinogen Dipstick 0.2 mg/dL (0.2 mg/dL) Urine Leukocyte Esterase Negative (NEG) Urine RBC 0 /HPF (0-2) Urine WBC Occ /HPF (0-4) Urine Squamous Epithelial Cells Mod /LPF Urine Bacteria Few /HPF (0-FEW) Urine Opiates Screen Neg (NEG) Urine Methadone Screen Neg (NEG) Urine Barbiturates Neg (NEG) Urine Phencyclidine Screen Neg (NEG) Urine Amphetamine/Methamphetamine Neg (NEG) Urine Benzodiazepines Screen Neg (NEG) Urine Cocaine Screen Neg (NEG) Urine Cannabinoids Screen Neg (NEG) Urine Ethyl Alcohol Neg (NEG) Test 02/02/18 21:35 Troponin I Quantitative 0.254 ng/mL (0.000-0.055) Laboratory Tests Test 02/02/18 15:35 02/02/18 16:30 02/02/18 17:02 02/02/18 19:15 White Blood Count 8.4 x10^3/uL (4.0-11.0) Red Blood Count 3.89 x10^6/uL (3.50-5.40) Hemoglobin 11.7 g/dL (12.0-15.5) Hematocrit 34.4 % (36.0-47.0) Mean Corpuscular Volume 89 fL (79-100) Mean Corpuscular Hemoglobin 30 pg (25-35) Mean Corpuscular Hemoglobin Concent 34 g/dL (31-37) Red Cell Distribution Width 16.3 % (11.5-14.5) Platelet Count 161 x10^3/uL (140-400) Neutrophils (%) (Auto) 72 % (31-73) Lymphocytes (%) (Auto) 18 % (24-48) Monocytes (%) (Auto) 8 % (0-9) Eosinophils (%) (Auto) 2 % (0-3) Basophils (%) (Auto) 1 % (0-3) Neutrophils # (Auto) 6.0 x10^3uL (1.8-7.7) Lymphocytes # (Auto) 1.5 x10^3/uL (1.0-4.8) Monocytes # (Auto) 0.7 x10^3/uL (0.0-1.1) Eosinophils # (Auto) 0.1 x10^3/uL (0.0-0.7) Basophils # (Auto) 0.0 x10^3/uL (0.0-0.2) Sodium Level 137 mmol/L (136-145) Potassium Level 4.0 mmol/L (3.5-5.1) Chloride Level 102 mmol/L (98-107) Carbon Dioxide Level 29 mmol/L (21-32) Anion Gap 6 (6-14) Blood Urea Nitrogen 18 mg/dL (7-20) Creatinine 1.0 mg/dL (0.6-1.0) Estimated GFR (Cockcroft-Gault) 55.0 BUN/Creatinine Ratio 18 (6-20) Glucose Level 143 mg/dL (70-99) Calcium Level 9.6 mg/dL (8.5-10.1) Magnesium Level 1.5 mg/dL (1.8-2.4) Total Bilirubin 0.4 mg/dL (0.2-1.0) Aspartate Amino Transf (AST/SGOT) 23 U/L (15-37) Alanine Aminotransferase (ALT/SGPT) 44 U/L (14-59) Alkaline Phosphatase 93 U/L (46-116) Creatine Kinase 45 U/L (26-192) Creatine Kinase MB (Mass) < 0.5 ng/mL (0.0-3.6) Creatine Kinase MB Relative Index % (0-4) Troponin I Quantitative 0.286 ng/mL (0.000-0.055) 0.261 ng/mL (0.000-0.055) AY-Lpx-L-Type Natriuretic Peptide 2354 pg/mL (0-124) Total Protein 7.2 g/dL (6.4-8.2) Albumin 3.3 g/dL (3.4-5.0) Albumin/Globulin Ratio 0.8 (1.0-1.7) Thyroid Stimulating Hormone (TSH) 3.390 uIU/mL (0.358-3.74) Prothrombin Time 15.8 SEC (11.7-14.0) Prothromb Time International Ratio 1.3 (0.8-1.1) Urine Collection Type Unknown Urine Color Yellow Urine Clarity Clear Urine pH 7.0 Urine Specific [place] 1.015 Urine Protein Negative mg/dL (NEG-TRACE) Urine Glucose (UA) Negative mg/dL (NEG) Urine Ketones (Stick) Negative mg/dL (NEG) Urine Blood Negative (NEG) Urine Nitrite Negative (NEG) Urine Bilirubin Negative (NEG) Urine Urobilinogen Dipstick 0.2 mg/dL (0.2 mg/dL) Urine Leukocyte Esterase Negative (NEG) Urine RBC 0 /HPF (0-2) Urine WBC Occ /HPF (0-4) Urine Squamous Epithelial Cells Mod /LPF Urine Bacteria Few /HPF (0-FEW) Urine Opiates Screen Neg (NEG) Urine Methadone Screen Neg (NEG) Urine Barbiturates Neg (NEG) Urine Phencyclidine Screen Neg (NEG) Urine Amphetamine/Methamphetamine Neg (NEG) Urine Benzodiazepines Screen Neg (NEG) Urine Cocaine Screen Neg (NEG) Urine Cannabinoids Screen Neg (NEG) Urine Ethyl Alcohol Neg (NEG) Test 02/02/18 21:35 Troponin I Quantitative 0.254 ng/mL (0.000-0.055) VTE Prophylaxis Ordered VTE Prophylaxis Devices: Yes VTE Pharmacological Prophylaxi: Yes Assessment/Plan Assessment/Plan DATE: 11/10/16 1207 ASSESSMENT ASSESSMENT/PLAN 1. Chest pain: 2. Afib with RVR 3. cardiac ablation for afib: 01/29/2018 4. Elevated troponin 5. CHF 6. Hypertension 7. DM 8. morbid obesity 9. hypomagnesemia plan 1. metoprolol and cardizem cd given 2. heparin drip. Replace Mg 3. need EP 4. trend troponin,x3 6. educated on need of weight loss, diet compliance 7. medical management 8. cvc tele 9. accuchecks FULBRIGHT,MISBAH W MD Feb 02, 2018 22:35
[2018-02-02] MEDS: APIXABAN 5 MG TABLET. PO SCH (22:36)
[2018-02-02] MEDS: DRONEDARONE HCL 400 MG TABLET PO SCH (22:38)
[2018-02-02] MEDS ORDERED: CETIRIZINE HCL 10 MG TABLET. PO PRN (22:45)
[2018-02-02 23:20] VITALS: BP 103/64
[2018-02-03] MEDS: ANTI-COAG MONITOR BY PHARMACY. MC PRN ×2 (01:17→10:45)
[2018-02-03 03:05] VITALS: BP 119/50
[2018-02-03 05:25] LABS: BASO % 1 % (0-3); EOS # 0.2 x10^3/uL (0.0-0.7); EOS % 2 % (0-3); HEMATOCRIT 37.4 % (36.0-47.0); HEMOGLOBIN 12.5 g/dL (12.0-15.5); LYMPH # 1.7 x10^3/uL (1.0-4.8); LYMPH % 23 % (24-48); MEAN CORPUSCULAR HEMOGLOBIN 30 pg (25-35); MEAN CORPUSCULAR HGB CONC 34 g/dL (31-37); MEAN CORPUSCULAR VOLUME 90 fL (79-100); MONO # 0.6 x10^3/uL (0.0-1.1); MONO % 8 % (0-9); NEUT # 4.9 x10^3uL (1.8-7.7); NEUT % 66 % (31-73); PLATELET COUNT 178 x10^3/uL (140-400); RED BLOOD COUNT 4.16 x10^6/uL (3.50-5.40); RED CELL DISTRIBUTION WIDTH 16.8 % (11.5-14.5); WHITE BLOOD COUNT 7.4 x10^3/uL (4.0-11.0)
[2018-02-03] MEDS: LEVOTHYROXINE 25 MCG TABLET. PO SCH (05:37)
[2018-02-03] MEDS: METOPROLOL TART IMMED RELEASE 25 MG TABLET. PO SCH ×4 (05:40→23:32)
[2018-02-03 05:45] LABS: ALBUMIN 3.4 g/dL (3.4-5.0); ALBUMIN/GLOBULIN RATIO 0.8 (1.0-1.7); CALCIUM 9.4 mg/dL (8.5-10.1); CREATININE 0.9 mg/dL (0.6-1.0); GFR 62.1; MAGNESIUM 1.7 mg/dL (1.8-2.4); TOTAL BILIRUBIN 0.5 mg/dL (0.2-1.0); TOTAL PROTEIN 7.8 g/dL (6.4-8.2)
[2018-02-03 07:10] VITALS: BP 132/75
[2018-02-03] MEDS: APIXABAN 5 MG TABLET. PO SCH ×2 (08:29→20:47)
[2018-02-03] MEDS: CALCIUM CARB/VIT D3 500/200 TABLET. PO SCH ×2 (08:29→16:56)
[2018-02-03] MEDS: DRONEDARONE HCL 400 MG TABLET PO SCH ×2 (08:30→16:55)
[2018-02-03] MEDS ORDERED: FAMOTIDINE 20 MG TABLET. PO PRN (09:00)
[2018-02-03] MEDS ORDERED: DRONEDARONE HCL 400 MG TABLET PO SCH (09:00)
[2018-02-03] MEDS ORDERED: LISINOPRIL 20 MG TABLET PO SCH (09:00)
[2018-02-03] MEDS ORDERED: METOPROLOL TART IMMED RELEASE 25 MG TABLET. PO SCH (09:00)
[2018-02-03] MEDS ORDERED: rOPINIRole 0.25 MG TABLET. PO PRN (09:00)
[2018-02-03 11:10] VITALS: BP 112/61
[2018-02-03] MEDS ORDERED: MAGNESIUM SULFATE 2GM 50 ML IV ONE (11:15)
[2018-02-03] MEDS ORDERED: 0.9 % SODIUM CHLORIDE 10 ML DISP.SYRIN. IV PRN (11:45)
--- NOTE | 2018-02-03 11:57 | PDOC ---
LEROY BUTTERFIELD GLASS GLAZIER 02/03/18 1157: CARDIO Progress Notes Date and Time Date of Service 02/03/2018 Time of Evaluation 1130 Subjective Subjective: No Chest Pain, No shortness of breath, No Palpitations Vitals Vitals Vital Signs Date Time Temp Pulse Resp B/P (MAP) Pulse Ox O2 Delivery O2 Flow Rate FiO2 02/03/18 08:30 76 132/75 02/03/18 08:09 Room Air 02/03/18 07:10 98.4 20 98 2.0 98.4 Weight Weight [ ] Input and Output Intake and Output Intake and Output 02/03/18 07:00 Intake Total 560 ml Output Total 700 ml Balance -140 ml Intake Oral 560 ml Output Urine Total 700 ml Laboratory Labs Laboratory Tests Test 02/02/18 15:35 02/02/18 16:30 02/02/18 17:02 02/02/18 19:15 White Blood Count 8.4 x10^3/uL (4.0-11.0) Red Blood Count 3.89 x10^6/uL (3.50-5.40) Hemoglobin 11.7 g/dL (12.0-15.5) Hematocrit 34.4 % (36.0-47.0) Mean Corpuscular Volume 89 fL (79-100) Mean Corpuscular Hemoglobin 30 pg (25-35) Mean Corpuscular Hemoglobin Concent 34 g/dL (31-37) Red Cell Distribution Width 16.3 % (11.5-14.5) Platelet Count 161 x10^3/uL (140-400) Neutrophils (%) (Auto) 72 % (31-73) Lymphocytes (%) (Auto) 18 % (24-48) Monocytes (%) (Auto) 8 % (0-9) Eosinophils (%) (Auto) 2 % (0-3) Basophils (%) (Auto) 1 % (0-3) Neutrophils # (Auto) 6.0 x10^3uL (1.8-7.7) Lymphocytes # (Auto) 1.5 x10^3/uL (1.0-4.8) Monocytes # (Auto) 0.7 x10^3/uL (0.0-1.1) Eosinophils # (Auto) 0.1 x10^3/uL (0.0-0.7) Basophils # (Auto) 0.0 x10^3/uL (0.0-0.2) Sodium Level 137 mmol/L (136-145) Potassium Level 4.0 mmol/L (3.5-5.1) Chloride Level 102 mmol/L (98-107) Carbon Dioxide Level 29 mmol/L (21-32) Anion Gap 6 (6-14) Blood Urea Nitrogen 18 mg/dL (7-20) Creatinine 1.0 mg/dL (0.6-1.0) Estimated GFR (Cockcroft-Gault) 55.0 BUN/Creatinine Ratio 18 (6-20) Glucose Level 143 mg/dL (70-99) Calcium Level 9.6 mg/dL (8.5-10.1) Magnesium Level 1.5 mg/dL (1.8-2.4) Total Bilirubin 0.4 mg/dL (0.2-1.0) Aspartate Amino Transf (AST/SGOT) 23 U/L (15-37) Alanine Aminotransferase (ALT/SGPT) 44 U/L (14-59) Alkaline Phosphatase 93 U/L (46-116) Creatine Kinase 45 U/L (26-192) Creatine Kinase MB (Mass) < 0.5 ng/mL (0.0-3.6) Creatine Kinase MB Relative Index % (0-4) Troponin I Quantitative 0.286 ng/mL (0.000-0.055) 0.261 ng/mL (0.000-0.055) GM-Roe-R-Type Natriuretic Peptide 2354 pg/mL (0-124) Total Protein 7.2 g/dL (6.4-8.2) Albumin 3.3 g/dL (3.4-5.0) Albumin/Globulin Ratio 0.8 (1.0-1.7) Thyroid Stimulating Hormone (TSH) 3.390 uIU/mL (0.358-3.74) Prothrombin Time 15.8 SEC (11.7-14.0) Prothromb Time International Ratio 1.3 (0.8-1.1) Urine Collection Type Unknown Urine Color Yellow Urine Clarity Clear Urine pH 7.0 Urine Specific Gaffney 1.015 Urine Protein Negative mg/dL (NEG-TRACE) Urine Glucose (UA) Negative mg/dL (NEG) Urine Ketones (Stick) Negative mg/dL (NEG) Urine Blood Negative (NEG) Urine Nitrite Negative (NEG) Urine Bilirubin Negative (NEG) Urine Urobilinogen Dipstick 0.2 mg/dL (0.2 mg/dL) Urine Leukocyte Esterase Negative (NEG) Urine RBC 0 /HPF (0-2) Urine WBC Occ /HPF (0-4) Urine Squamous Epithelial Cells Mod /LPF Urine Bacteria Few /HPF (0-FEW) Urine Opiates Screen Neg (NEG) Urine Methadone Screen Neg (NEG) Urine Barbiturates Neg (NEG) Urine Phencyclidine Screen Neg (NEG) Urine Amphetamine/Methamphetamine Neg (NEG) Urine Benzodiazepines Screen Neg (NEG) Urine Cocaine Screen Neg (NEG) Urine Cannabinoids Screen Neg (NEG) Urine Ethyl Alcohol Neg (NEG) Test 02/02/18 21:35 02/03/18 04:55 02/03/18 07:24 Troponin I Quantitative 0.254 ng/mL (0.000-0.055) White Blood Count 7.4 x10^3/uL (4.0-11.0) Red Blood Count 4.16 x10^6/uL (3.50-5.40) Hemoglobin 12.5 g/dL (12.0-15.5) Hematocrit 37.4 % (36.0-47.0) Mean Corpuscular Volume 90 fL (79-100) Mean Corpuscular Hemoglobin 30 pg (25-35) Mean Corpuscular Hemoglobin Concent 34 g/dL (31-37) Red Cell Distribution Width 16.8 % (11.5-14.5) Platelet Count 178 x10^3/uL (140-400) Neutrophils (%) (Auto) 66 % (31-73) Lymphocytes (%) (Auto) 23 % (24-48) Monocytes (%) (Auto) 8 % (0-9) Eosinophils (%) (Auto) 2 % (0-3) Basophils (%) (Auto) 1 % (0-3) Neutrophils # (Auto) 4.9 x10^3uL (1.8-7.7) Lymphocytes # (Auto) 1.7 x10^3/uL (1.0-4.8) Monocytes # (Auto) 0.6 x10^3/uL (0.0-1.1) Eosinophils # (Auto) 0.2 x10^3/uL (0.0-0.7) Basophils # (Auto) 0.0 x10^3/uL (0.0-0.2) Sodium Level 140 mmol/L (136-145) Potassium Level 4.0 mmol/L (3.5-5.1) Chloride Level 102 mmol/L (98-107) Carbon Dioxide Level 30 mmol/L (21-32) Anion Gap 8 (6-14) Blood Urea Nitrogen 14 mg/dL (7-20) Creatinine 0.9 mg/dL (0.6-1.0) Estimated GFR (Cockcroft-Gault) 62.1 BUN/Creatinine Ratio 16 (6-20) Glucose Level 132 mg/dL (70-99) Calcium Level 9.4 mg/dL (8.5-10.1) Magnesium Level 1.7 mg/dL (1.8-2.4) Total Bilirubin 0.5 mg/dL (0.2-1.0) Aspartate Amino Transf (AST/SGOT) 22 U/L (15-37) Alanine Aminotransferase (ALT/SGPT) 41 U/L (14-59) Alkaline Phosphatase 93 U/L (46-116) Total Protein 7.8 g/dL (6.4-8.2) Albumin 3.4 g/dL (3.4-5.0) Albumin/Globulin Ratio 0.8 (1.0-1.7) Glucose (Fingerstick) 139 mg/dL (70-99) Physical Exam HEENT: Neck Supple W Full Motion Chest: Symmetric LUNGS: Clear to Auscultation Heart: irregularly irregular (AFIB) Abdomen: Soft N/T Extremities: No Edema, No Calf Tenderness Neurology: alert, oriented, follow commands Assessment Assessment 1. Chest pain: due to afib. CTA negative for acute changes. 2. Refractory Afib with RVR; remains on afib rate controlled 3. S/P cardiac ablation for afib: 01/29/2018 4. Elevated troponin: Peaked trop at 0.2 demand mediated with also previous ablation 5. Diastolic CHF: compensated 6. HTN: controlled 7. DM2/HLP 8. Nonproductive intractable intermittent coughing spells: could be reactive to GERD or potentially ACEi Recommendations 1. Continue with current metoprolol and cardizem. Resume multaq and eliquis. GERARDO/CVN tomorrow. Discussed risks and benefits and agreeable to proceed. 2. Replace Mg. 3. Pt reports intractable coughing preceded palpitations/afib conversion. Stop lisinopril and start on losartan. Continue home zantac, pepcid per hospital formulary. Records reviewed from [facility] 1. 01/29/2018 Successful afib cryo ablation with isolation of the pulmonary veins with no inducible arrhythmias post ablation WADE CARDONA MD 02/03/18 1703: CARDIO Progress Notes Plan Plan Pt. seen and examined. Agree with above GASTROENTEROLOGY PROFESSOR note. plan for GERARDO/CVN in a.m. and DC afterwards. Discussed with patient and she is amenable. Thanks. LEROY BUTTERFIELD GLASS GLAZIER Feb 03, 2018 11:57 WADE CARDONA MD Feb 03, 2018 17:03
[2018-02-03] MEDS ORDERED: FAMOTIDINE 20 MG TABLET. PO ONE (12:30)
--- NOTE | 2018-02-03 12:48 | PDOC ---
PROGRESS NOTES Chief Complaint Chief Complaint angina, chest pain afib,, tachy acute diastolic CHF, afib htn dm2, obesity, BMI 34 History of Present Illness History of Present Illness metoprolol and cardizem. multaq and eliquis. CV team plan GERARDO tomorrow pain was better with nitro, make avail PRN intractable coughing preceded palpitations/afib conversion. Vitals Vitals Vital Signs Date Time Temp Pulse Resp B/P (MAP) Pulse Ox O2 Delivery O2 Flow Rate FiO2 02/03/18 12:09 80 112/61 02/03/18 11:10 98.3 20 94 Nasal Cannula 2.0 98.3 Physical Exam General: Alert, Oriented X3, Cooperative, No acute distress Heart: Regular rate, No murmurs, Other (AFIB) Lungs: Clear Abdomen: Soft, No tenderness Extremities: No cyanosis, Other (trace LE edema) Skin: No breakdown, No significant lesion Labs LABS Laboratory Tests Test 02/02/18 15:35 02/02/18 16:30 02/02/18 17:02 02/02/18 19:15 White Blood Count 8.4 x10^3/uL (4.0-11.0) Red Blood Count 3.89 x10^6/uL (3.50-5.40) Hemoglobin 11.7 g/dL (12.0-15.5) Hematocrit 34.4 % (36.0-47.0) Mean Corpuscular Volume 89 fL (79-100) Mean Corpuscular Hemoglobin 30 pg (25-35) Mean Corpuscular Hemoglobin Concent 34 g/dL (31-37) Red Cell Distribution Width 16.3 % (11.5-14.5) Platelet Count 161 x10^3/uL (140-400) Neutrophils (%) (Auto) 72 % (31-73) Lymphocytes (%) (Auto) 18 % (24-48) Monocytes (%) (Auto) 8 % (0-9) Eosinophils (%) (Auto) 2 % (0-3) Basophils (%) (Auto) 1 % (0-3) Neutrophils # (Auto) 6.0 x10^3uL (1.8-7.7) Lymphocytes # (Auto) 1.5 x10^3/uL (1.0-4.8) Monocytes # (Auto) 0.7 x10^3/uL (0.0-1.1) Eosinophils # (Auto) 0.1 x10^3/uL (0.0-0.7) Basophils # (Auto) 0.0 x10^3/uL (0.0-0.2) Sodium Level 137 mmol/L (136-145) Potassium Level 4.0 mmol/L (3.5-5.1) Chloride Level 102 mmol/L (98-107) Carbon Dioxide Level 29 mmol/L (21-32) Anion Gap 6 (6-14) Blood Urea Nitrogen 18 mg/dL (7-20) Creatinine 1.0 mg/dL (0.6-1.0) Estimated GFR (Cockcroft-Gault) 55.0 BUN/Creatinine Ratio 18 (6-20) Glucose Level 143 mg/dL (70-99) Calcium Level 9.6 mg/dL (8.5-10.1) Magnesium Level 1.5 mg/dL (1.8-2.4) Total Bilirubin 0.4 mg/dL (0.2-1.0) Aspartate Amino Transf (AST/SGOT) 23 U/L (15-37) Alanine Aminotransferase (ALT/SGPT) 44 U/L (14-59) Alkaline Phosphatase 93 U/L (46-116) Creatine Kinase 45 U/L (26-192) Creatine Kinase MB (Mass) < 0.5 ng/mL (0.0-3.6) Creatine Kinase MB Relative Index % (0-4) Troponin I Quantitative 0.286 ng/mL (0.000-0.055) 0.261 ng/mL (0.000-0.055) NT-Xec-[id number]-Type Natriuretic Peptide 2354 pg/mL (0-124) Total Protein 7.2 g/dL (6.4-8.2) Albumin 3.3 g/dL (3.4-5.0) Albumin/Globulin Ratio 0.8 (1.0-1.7) Thyroid Stimulating Hormone (TSH) 3.390 uIU/mL (0.358-3.74) Prothrombin Time 15.8 SEC (11.7-14.0) Prothromb Time International Ratio 1.3 (0.8-1.1) Urine Collection Type Unknown Urine Color Yellow Urine Clarity Clear Urine pH 7.0 Urine Specific Garber 1.015 Urine Protein Negative mg/dL (NEG-TRACE) Urine Glucose (UA) Negative mg/dL (NEG) Urine Ketones (Stick) Negative mg/dL (NEG) Urine Blood Negative (NEG) Urine Nitrite Negative (NEG) Urine Bilirubin Negative (NEG) Urine Urobilinogen Dipstick 0.2 mg/dL (0.2 mg/dL) Urine Leukocyte Esterase Negative (NEG) Urine RBC 0 /HPF (0-2) Urine WBC Occ /HPF (0-4) Urine Squamous Epithelial Cells Mod /LPF Urine Bacteria Few /HPF (0-FEW) Urine Opiates Screen Neg (NEG) Urine Methadone Screen Neg (NEG) Urine Barbiturates Neg (NEG) Urine Phencyclidine Screen Neg (NEG) Urine Amphetamine/Methamphetamine Neg (NEG) Urine Benzodiazepines Screen Neg (NEG) Urine Cocaine Screen Neg (NEG) Urine Cannabinoids Screen Neg (NEG) Urine Ethyl Alcohol Neg (NEG) Test 02/02/18 21:35 02/03/18 04:55 02/03/18 07:24 02/03/18 12:01 Troponin I Quantitative 0.254 ng/mL (0.000-0.055) White Blood Count 7.4 x10^3/uL (4.0-11.0) Red Blood Count 4.16 x10^6/uL (3.50-5.40) Hemoglobin 12.5 g/dL (12.0-15.5) Hematocrit 37.4 % (36.0-47.0) Mean Corpuscular Volume 90 fL (79-100) Mean Corpuscular Hemoglobin 30 pg (25-35) Mean Corpuscular Hemoglobin Concent 34 g/dL (31-37) Red Cell Distribution Width 16.8 % (11.5-14.5) Platelet Count 178 x10^3/uL (140-400) Neutrophils (%) (Auto) 66 % (31-73) Lymphocytes (%) (Auto) 23 % (24-48) Monocytes (%) (Auto) 8 % (0-9) Eosinophils (%) (Auto) 2 % (0-3) Basophils (%) (Auto) 1 % (0-3) Neutrophils # (Auto) 4.9 x10^3uL (1.8-7.7) Lymphocytes # (Auto) 1.7 x10^3/uL (1.0-4.8) Monocytes # (Auto) 0.6 x10^3/uL (0.0-1.1) Eosinophils # (Auto) 0.2 x10^3/uL (0.0-0.7) Basophils # (Auto) 0.0 x10^3/uL (0.0-0.2) Sodium Level 140 mmol/L (136-145) Potassium Level 4.0 mmol/L (3.5-5.1) Chloride Level 102 mmol/L (98-107) Carbon Dioxide Level 30 mmol/L (21-32) Anion Gap 8 (6-14) Blood Urea Nitrogen 14 mg/dL (7-20) Creatinine 0.9 mg/dL (0.6-1.0) Estimated GFR (Cockcroft-Gault) 62.1 BUN/Creatinine Ratio 16 (6-20) Glucose Level 132 mg/dL (70-99) Calcium Level 9.4 mg/dL (8.5-10.1) Magnesium Level 1.7 mg/dL (1.8-2.4) Total Bilirubin 0.5 mg/dL (0.2-1.0) Aspartate Amino Transf (AST/SGOT) 22 U/L (15-37) Alanine Aminotransferase (ALT/SGPT) 41 U/L (14-59) Alkaline Phosphatase 93 U/L (46-116) Total Protein 7.8 g/dL (6.4-8.2) Albumin 3.4 g/dL (3.4-5.0) Albumin/Globulin Ratio 0.8 (1.0-1.7) Glucose (Fingerstick) 139 mg/dL (70-99) 127 mg/dL (70-99) Review of Systems Review of Systems no n.v.d Assessment and Plan Assessmemt and Plan Problems Medical Problems: (1) Atrial fibrillation Status: Acute (2) Chest pain Status: Acute (3) Elevated troponin Status: Acute Comment Review of Relevant I have reviewed the following items eris (where applicable) has been applied. Labs Laboratory Tests Test 02/02/18 15:35 02/02/18 16:30 02/02/18 17:02 02/02/18 19:15 White Blood Count 8.4 x10^3/uL (4.0-11.0) Red Blood Count 3.89 x10^6/uL (3.50-5.40) Hemoglobin 11.7 g/dL (12.0-15.5) Hematocrit 34.4 % (36.0-47.0) Mean Corpuscular Volume 89 fL (79-100) Mean Corpuscular Hemoglobin 30 pg (25-35) Mean Corpuscular Hemoglobin Concent 34 g/dL (31-37) Red Cell Distribution Width 16.3 % (11.5-14.5) Platelet Count 161 x10^3/uL (140-400) Neutrophils (%) (Auto) 72 % (31-73) Lymphocytes (%) (Auto) 18 % (24-48) Monocytes (%) (Auto) 8 % (0-9) Eosinophils (%) (Auto) 2 % (0-3) Basophils (%) (Auto) 1 % (0-3) Neutrophils # (Auto) 6.0 x10^3uL (1.8-7.7) Lymphocytes # (Auto) 1.5 x10^3/uL (1.0-4.8) Monocytes # (Auto) 0.7 x10^3/uL (0.0-1.1) Eosinophils # (Auto) 0.1 x10^3/uL (0.0-0.7) Basophils # (Auto) 0.0 x10^3/uL (0.0-0.2) Sodium Level 137 mmol/L (136-145) Potassium Level 4.0 mmol/L (3.5-5.1) Chloride Level 102 mmol/L (98-107) Carbon Dioxide Level 29 mmol/L (21-32) Anion Gap 6 (6-14) Blood Urea Nitrogen 18 mg/dL (7-20) Creatinine 1.0 mg/dL (0.6-1.0) Estimated GFR (Cockcroft-Gault) 55.0 BUN/Creatinine Ratio 18 (6-20) Glucose Level 143 mg/dL (70-99) Calcium Level 9.6 mg/dL (8.5-10.1) Magnesium Level 1.5 mg/dL (1.8-2.4) Total Bilirubin 0.4 mg/dL (0.2-1.0) Aspartate Amino Transf (AST/SGOT) 23 U/L (15-37) Alanine Aminotransferase (ALT/SGPT) 44 U/L (14-59) Alkaline Phosphatase 93 U/L (46-116) Creatine Kinase 45 U/L (26-192) Creatine Kinase MB (Mass) < 0.5 ng/mL (0.0-3.6) Creatine Kinase MB Relative Index % (0-4) Troponin I Quantitative 0.286 ng/mL (0.000-0.055) 0.261 ng/mL (0.000-0.055) PJ-Naa-M-Type Natriuretic Peptide 2354 pg/mL (0-124) Total Protein 7.2 g/dL (6.4-8.2) Albumin 3.3 g/dL (3.4-5.0) Albumin/Globulin Ratio 0.8 (1.0-1.7) Thyroid Stimulating Hormone (TSH) 3.390 uIU/mL (0.358-3.74) Prothrombin Time 15.8 SEC (11.7-14.0) Prothromb Time International Ratio 1.3 (0.8-1.1) Urine Collection Type Unknown Urine Color Yellow Urine Clarity Clear Urine pH 7.0 Urine Specific Garber 1.015 Urine Protein Negative mg/dL (NEG-TRACE) Urine Glucose (UA) Negative mg/dL (NEG) Urine Ketones (Stick) Negative mg/dL (NEG) Urine Blood Negative (NEG) Urine Nitrite Negative (NEG) Urine Bilirubin Negative (NEG) Urine Urobilinogen Dipstick 0.2 mg/dL (0.2 mg/dL) Urine Leukocyte Esterase Negative (NEG) Urine RBC 0 /HPF (0-2) Urine WBC Occ /HPF (0-4) Urine Squamous Epithelial Cells Mod /LPF Urine Bacteria Few /HPF (0-FEW) Urine Opiates Screen Neg (NEG) Urine Methadone Screen Neg (NEG) Urine Barbiturates Neg (NEG) Urine Phencyclidine Screen Neg (NEG) Urine Amphetamine/Methamphetamine Neg (NEG) Urine Benzodiazepines Screen Neg (NEG) Urine Cocaine Screen Neg (NEG) Urine Cannabinoids Screen Neg (NEG) Urine Ethyl Alcohol Neg (NEG) Test 02/02/18 21:35 02/03/18 04:55 02/03/18 07:24 02/03/18 12:01 Troponin I Quantitative 0.254 ng/mL (0.000-0.055) White Blood Count 7.4 x10^3/uL (4.0-11.0) Red Blood Count 4.16 x10^6/uL (3.50-5.40) Hemoglobin 12.5 g/dL (12.0-15.5) Hematocrit 37.4 % (36.0-47.0) Mean Corpuscular Volume 90 fL (79-100) Mean Corpuscular Hemoglobin 30 pg (25-35) Mean Corpuscular Hemoglobin Concent 34 g/dL (31-37) Red Cell Distribution Width 16.8 % (11.5-14.5) Platelet Count 178 x10^3/uL (140-400) Neutrophils (%) (Auto) 66 % (31-73) Lymphocytes (%) (Auto) 23 % (24-48) Monocytes (%) (Auto) 8 % (0-9) Eosinophils (%) (Auto) 2 % (0-3) Basophils (%) (Auto) 1 % (0-3) Neutrophils # (Auto) 4.9 x10^3uL (1.8-7.7) Lymphocytes # (Auto) 1.7 x10^3/uL (1.0-4.8) Monocytes # (Auto) 0.6 x10^3/uL (0.0-1.1) Eosinophils # (Auto) 0.2 x10^3/uL (0.0-0.7) Basophils # (Auto) 0.0 x10^3/uL (0.0-0.2) Sodium Level 140 mmol/L (136-145) Potassium Level 4.0 mmol/L (3.5-5.1) Chloride Level 102 mmol/L (98-107) Carbon Dioxide Level 30 mmol/L (21-32) Anion Gap 8 (6-14) Blood Urea Nitrogen 14 mg/dL (7-20) Creatinine 0.9 mg/dL (0.6-1.0) Estimated GFR (Cockcroft-Gault) 62.1 BUN/Creatinine Ratio 16 (6-20) Glucose Level 132 mg/dL (70-99) Calcium Level 9.4 mg/dL (8.5-10.1) Magnesium Level 1.7 mg/dL (1.8-2.4) Total Bilirubin 0.5 mg/dL (0.2-1.0) Aspartate Amino Transf (AST/SGOT) 22 U/L (15-37) Alanine Aminotransferase (ALT/SGPT) 41 U/L (14-59) Alkaline Phosphatase 93 U/L (46-116) Total Protein 7.8 g/dL (6.4-8.2) Albumin 3.4 g/dL (3.4-5.0) Albumin/Globulin Ratio 0.8 (1.0-1.7) Glucose (Fingerstick) 139 mg/dL (70-99) 127 mg/dL (70-99) Laboratory Tests Test 02/02/18 15:35 02/02/18 16:30 02/02/18 17:02 02/02/18 19:15 White Blood Count 8.4 x10^3/uL (4.0-11.0) Red Blood Count 3.89 x10^6/uL (3.50-5.40) Hemoglobin 11.7 g/dL (12.0-15.5) Hematocrit 34.4 % (36.0-47.0) Mean Corpuscular Volume 89 fL (79-100) Mean Corpuscular Hemoglobin 30 pg (25-35) Mean Corpuscular Hemoglobin Concent 34 g/dL (31-37) Red Cell Distribution Width 16.3 % (11.5-14.5) Platelet Count 161 x10^3/uL (140-400) Neutrophils (%) (Auto) 72 % (31-73) Lymphocytes (%) (Auto) 18 % (24-48) Monocytes (%) (Auto) 8 % (0-9) Eosinophils (%) (Auto) 2 % (0-3) Basophils (%) (Auto) 1 % (0-3) Neutrophils # (Auto) 6.0 x10^3uL (1.8-7.7) Lymphocytes # (Auto) 1.5 x10^3/uL (1.0-4.8) Monocytes # (Auto) 0.7 x10^3/uL (0.0-1.1) Eosinophils # (Auto) 0.1 x10^3/uL (0.0-0.7) Basophils # (Auto) 0.0 x10^3/uL (0.0-0.2) Sodium Level 137 mmol/L (136-145) Potassium Level 4.0 mmol/L (3.5-5.1) Chloride Level 102 mmol/L (98-107) Carbon Dioxide Level 29 mmol/L (21-32) Anion Gap 6 (6-14) Blood Urea Nitrogen 18 mg/dL (7-20) Creatinine 1.0 mg/dL (0.6-1.0) Estimated GFR (Cockcroft-Gault) 55.0 BUN/Creatinine Ratio 18 (6-20) Glucose Level 143 mg/dL (70-99) Calcium Level 9.6 mg/dL (8.5-10.1) Magnesium Level 1.5 mg/dL (1.8-2.4) Total Bilirubin 0.4 mg/dL (0.2-1.0) Aspartate Amino Transf (AST/SGOT) 23 U/L (15-37) Alanine Aminotransferase (ALT/SGPT) 44 U/L (14-59) Alkaline Phosphatase 93 U/L (46-116) Creatine Kinase 45 U/L (26-192) Creatine Kinase MB (Mass) < 0.5 ng/mL (0.0-3.6) Creatine Kinase MB Relative Index % (0-4) Troponin I Quantitative 0.286 ng/mL (0.000-0.055) 0.261 ng/mL (0.000-0.055) JQ-Awh-[id number]-Type Natriuretic Peptide 2354 pg/mL (0-124) Total Protein 7.2 g/dL (6.4-8.2) Albumin 3.3 g/dL (3.4-5.0) Albumin/Globulin Ratio 0.8 (1.0-1.7) Thyroid Stimulating Hormone (TSH) 3.390 uIU/mL (0.358-3.74) Prothrombin Time 15.8 SEC (11.7-14.0) Prothromb Time International Ratio 1.3 (0.8-1.1) Urine Collection Type Unknown Urine Color Yellow Urine Clarity Clear Urine pH 7.0 Urine Specific Garber 1.015 Urine Protein Negative mg/dL (NEG-TRACE) Urine Glucose (UA) Negative mg/dL (NEG) Urine Ketones (Stick) Negative mg/dL (NEG) Urine Blood Negative (NEG) Urine Nitrite Negative (NEG) Urine Bilirubin Negative (NEG) Urine Urobilinogen Dipstick 0.2 mg/dL (0.2 mg/dL) Urine Leukocyte Esterase Negative (NEG) Urine RBC 0 /HPF (0-2) Urine WBC Occ /HPF (0-4) Urine Squamous Epithelial Cells Mod /LPF Urine Bacteria Few /HPF (0-FEW) Urine Opiates Screen Neg (NEG) Urine Methadone Screen Neg (NEG) Urine Barbiturates Neg (NEG) Urine Phencyclidine Screen Neg (NEG) Urine Amphetamine/Methamphetamine Neg (NEG) Urine Benzodiazepines Screen Neg (NEG) Urine Cocaine Screen Neg (NEG) Urine Cannabinoids Screen Neg (NEG) Urine Ethyl Alcohol Neg (NEG) Test 02/02/18 21:35 02/03/18 04:55 02/03/18 07:24 02/03/18 12:01 Troponin I Quantitative 0.254 ng/mL (0.000-0.055) White Blood Count 7.4 x10^3/uL (4.0-11.0) Red Blood Count 4.16 x10^6/uL (3.50-5.40) Hemoglobin 12.5 g/dL (12.0-15.5) Hematocrit 37.4 % (36.0-47.0) Mean Corpuscular Volume 90 fL (79-100) Mean Corpuscular Hemoglobin 30 pg (25-35) Mean Corpuscular Hemoglobin Concent 34 g/dL (31-37) Red Cell Distribution Width 16.8 % (11.5-14.5) Platelet Count 178 x10^3/uL (140-400) Neutrophils (%) (Auto) 66 % (31-73) Lymphocytes (%) (Auto) 23 % (24-48) Monocytes (%) (Auto) 8 % (0-9) Eosinophils (%) (Auto) 2 % (0-3) Basophils (%) (Auto) 1 % (0-3) Neutrophils # (Auto) 4.9 x10^3uL (1.8-7.7) Lymphocytes # (Auto) 1.7 x10^3/uL (1.0-4.8) Monocytes # (Auto) 0.6 x10^3/uL (0.0-1.1) Eosinophils # (Auto) 0.2 x10^3/uL (0.0-0.7) Basophils # (Auto) 0.0 x10^3/uL (0.0-0.2) Sodium Level 140 mmol/L (136-145) Potassium Level 4.0 mmol/L (3.5-5.1) Chloride Level 102 mmol/L (98-107) Carbon Dioxide Level 30 mmol/L (21-32) Anion Gap 8 (6-14) Blood Urea Nitrogen 14 mg/dL (7-20) Creatinine 0.9 mg/dL (0.6-1.0) Estimated GFR (Cockcroft-Gault) 62.1 BUN/Creatinine Ratio 16 (6-20) Glucose Level 132 mg/dL (70-99) Calcium Level 9.4 mg/dL (8.5-10.1) Magnesium Level 1.7 mg/dL (1.8-2.4) Total Bilirubin 0.5 mg/dL (0.2-1.0) Aspartate Amino Transf (AST/SGOT) 22 U/L (15-37) Alanine Aminotransferase (ALT/SGPT) 41 U/L (14-59) Alkaline Phosphatase 93 U/L (46-116) Total Protein 7.8 g/dL (6.4-8.2) Albumin 3.4 g/dL (3.4-5.0) Albumin/Globulin Ratio 0.8 (1.0-1.7) Glucose (Fingerstick) 139 mg/dL (70-99) 127 mg/dL (70-99) Medications Current Medications Diltiazem HCl (Cardizem 24hr Cd) 180 mg 1X STAT PO Last administered on at 15:52; Start 02/02/18 at 15:32; Stop 02/02/18 at 15:33; Status DC Nitroglycerin (Nitrostat) 0.4 mg PRN Q5MIN PRN SL CHEST PAIN Last administered on 02/02/18at 15:53; Start 02/02/18 at 15:30 Magnesium Sulfate 50 ml @ 25 mls/hr 1X ONCE IV Last administered on 02/02/18at 16:42; Start 02/02/18 at 16:30; Stop 02/02/18 at 18:29; Status DC Magnesium Sulfate/ Dextrose 100 ml @ 100 mls/hr 1X ONCE IV ; Start 02/02/18 at 16:45; Stop 02/02/18 at 17:44; Status UNV Iohexol (Omnipaque 300 Mg/ml) 75 ml 1X ONCE IV Last administered on 02/02/18at 17:16; Start 02/02/18 at 17:15; Stop 02/02/18 at 17:16; Status DC Info (CONTRAST GIVEN -- Rx MONITORING) 1 each PRN DAILY PRN MC SEE COMMENTS; Start 02/02/18 at 17:15; Stop 02/04/18 at 17:14 Ondansetron HCl (Zofran) 4 mg PRN Q8HRS PRN IV NAUSEA/VOMITING; Start 02/02/18 at 17:30; Stop 02/03/18 at 17:29 Fentanyl Citrate (Fentanyl 2ml Vial) 50 mcg PRN Q2HR PRN IV PAIN Last administered on 02/02/18at 22:39; Start 02/02/18 at 17:30; Stop 02/03/18 at 17:29 Nitroglycerin (Nitrostat) 0.4 mg PRN Q5MIN PRN SL CHEST PAIN; Start 02/02/18 at 17:30; Stop 02/02/18 at 17:30; Status DC Metoprolol Tartrate (Lopressor) 25 mg Q6HRS PO Last administered on 02/03/18at 12 :09; Start 02/02/18 at 18:00 Heparin Sodium/ Dextrose 500 ml @ 0 mls/hr CONT PRN IV SEE I/O RECORD Last administered on 02/02/18at 19:35; Start 02/02/18 at 18:00; Stop 02/02/18 at 21:48; Status DC Heparin Sodium (Porcine) (Heparin Sodium) 2,500 unit PRN Q6HRS PRN IV FOR UFH LEVEL LESS THAN 0.2; Start 02/02/18 at 18:00; Stop 02/02/18 at 21:48; Status DC Dronedarone (Multaq) 400 mg BIDWMEALS PO Last administered on 02/03/18at 08:30; Start 02/02/18 at 22:00 Apixaban (Eliquis) 5 mg BID PO Last administered on 02/03/18at 08:29; Start at 22:00 Info (Anti-Coagulation Monitoring By Pharmacy) 1 each PRN DAILY PRN MC SEE COMMENTS Last administered on 02/03/18at 10:45; Start 02/02/18 at 22:00 Aspirin (Children'S Aspirin) 81 mg DAILY16 PO ; Start 02/03/18 at 16:00 Dronedarone (Multaq) 400 mg BID PO ; Start 02/03/18 at 09:00; Status UNV Lisinopril (Prinivil) 40 mg DAILY PO Last administered on 02/03/18at 08:29; Start 02/03/18 at 09:00; Stop 02/03/18 at 11:37; Status DC Metoprolol Tartrate (Lopressor) 25 mg BID PO ; Start 02/03/18 at 09:00; Status UNV Atorvastatin Calcium (Lipitor) 80 mg QHS PO ; Start 02/03/18 at 21:00 Calcium/Vitamin D (Oscal D 500mg/ 200uts) 1 tab BIDWMEALS PO Last administered on 02/03/18at 08:29; Start 02/03/18 at 08:00 Diltiazem HCl (Cardizem 24hr Cd) 180 mg DAILY16 PO ; Start 02/03/18 at 16:00 Levothyroxine Sodium (Synthroid) 25 mcg DAILY07 PO Last administered on at 05:37; Start 02/03/18 at 07:00 Metformin HCl (Glucophage) 500 mg BIDWMEALS PO ; Start 02/05/18 at 08:00 Famotidine (Pepcid) 40 mg PRN DAILY PRN PO HEARTBURN / GAS; Start 02/03/18 at 09 :00 Ropinirole HCl (Requip) 0.5 mg PRN QHS PRN PO MUSCLE SPASM; Start 02/03/18 at 09 :00 Cetirizine HCl (ZyrTEC) 10 mg PRN DAILY PRN PO ALLERGIES Last administered on at 08:30; Start 02/02/18 at 22:45 Magnesium Sulfate 50 ml @ 25 mls/hr 1X ONCE IV Last administered on 02/03/18at 12:10; Start 02/03/18 at 11:15; Stop 02/03/18 at 13:14 Sodium Chloride (Normal Saline Flush) 10 ml QSHIFT PRN IV AFTER MEDS AND BLOOD DRAWS; Start 02/03/18 at 11:45 Losartan Potassium (Cozaar) 100 mg DAILY PO ; Start 02/04/18 at 09:00 Fentanyl Citrate (Fentanyl 2ml Vial) 25 mcg PRN Q5MIN PRN IV MILD PAIN; Start 02/04/18 at 07:00; Stop 02/05/18 at 06:59 Fentanyl Citrate (Fentanyl 2ml Vial) 50 mcg PRN Q5MIN PRN IV MODERATE TO SEVERE PAIN; Start 02/04/18 at 07:00; Stop 02/05/18 at 06:59 Ringer's Solution 1,000 ml @ 30 mls/hr Q24H IV ; Start 02/04/18 at 07:00; Stop 02/04/18 at 18:59 Lidocaine HCl (Xylocaine-Mpf 1% 2ml Vial) 2 ml PRN 1X PRN ID IV START; Start at 07:00; Stop 02/05/18 at 06:59 Famotidine (Pepcid) 20 mg QHS PO ; Start 02/03/18 at 21:00 Famotidine (Pepcid) 20 mg 1X ONCE PO ; Start 02/03/18 at 12:30; Stop 02/03/18 at 12:31; Status DC Active Scripts Active Reported Claritin (Loratadine) 10 Mg Tablet 10 Mg PO PRN DAILY PRN Multaq (Dronedarone Hcl) 400 Mg Tablet 1 Tab PO BID Calcium 600 + Vit D 800 Tab (Calcium Carbonate/Vitamin D3) 1 Each Tablet 1 Each PO BID Diltiazem 24HR Cd (Diltiazem Hcl) 180 Mg Cap.er.24h 180 Mg PO DAILY16 Metoprolol Tartrate 25 Mg Tablet 1 Tab PO BID Levothyroxine Sodium 25 Mcg Tablet 1 Tab PO DAILY Eliquis (Apixaban) 5 Mg Tablet 5 Mg PO BID Ranitidine Hcl 300 Mg Capsule 300 Mg PO DAILY PRN Atorvastatin Calcium 80 Mg Tablet 80 Mg PO HS Aspirin 81 Mg Tab.chew 81 Mg PO DAILY16 Lisinopril 40 Mg Tablet 40 Mg PO DAILY Requip (Ropinirole Hcl) 0.5 Mg Tablet 1 Tab PO QHS PRN Metformin Hcl Er (Metformin Hcl) 500 Mg Tab.er.24h 1 Tab PO BIDWMEALS Vitals/I & O Vital Sign - Last 24 Hours 02/02/18 02/02/18 02/02/18 02/02/18 15:09 15:52 15:53 16:00 Temp 98.1 98.1 Pulse 94 81 90 88 Resp 20 20 B/P (MAP) 145/77 (99) 145/77 145/77 132/73 (92) Pulse Ox 96 95 O2 Delivery Room Air Room Air 02/02/18 02/02/18 02/02/18 02/02/18 17:00 18:00 19:35 19:37 Temp 97.8 97.8 Pulse 92 94 85 100 Resp 22 24 18 B/P (MAP) 123/63 (83) 110/76 (87) 106/67 (80) 106/67 Pulse Ox 95 95 93 O2 Delivery Room Air Room Air Room Air 02/02/18 02/02/18 02/02/18 02/02/18 20:06 22:38 22:39 23:09 Pulse 76 Resp 0 18 B/P (MAP) 12/66 O2 Delivery Room Air 02/02/18 02/02/18 02/03/18 02/03/18 23:10 23:20 03:05 05:40 Temp 97.8 98.0 97.8 98.0 Pulse 78 68 65 63 Resp 18 20 B/P (MAP) 103/64 103/64 (77) 119/50 (73) 116/56 Pulse Ox 97 98 O2 Delivery Room Air Nasal Cannula O2 Flow Rate 2.0 02/03/18 02/03/18 02/03/18 02/03/18 07:10 08:09 08:29 08:30 Temp 98.4 98.4 Pulse 76 76 76 Resp 20 B/P (MAP) 132/75 (94) 132/75 132/75 Pulse Ox 98 O2 Delivery Nasal Cannula Room Air O2 Flow Rate 2.0 02/03/18 02/03/18 11:10 12:09 Temp 98.3 98.3 Pulse 80 80 Resp 20 B/P (MAP) 112/61 (78) 112/61 Pulse Ox 94 O2 Delivery Nasal Cannula O2 Flow Rate 2.0 Intake and Output 02/02/18 02/02/18 02/03/18 15:00 23:00 07:00 Intake Total 560 ml Output Total 700 ml Balance -140 ml GERRY BLANDON MD Feb 03, 2018 12:48
[2018-02-03 15:00] VITALS: BP 102/57
[2018-02-03] MEDS: ASPIRIN CHEWABLE 81 MG TABLET. PO SCH (16:56)
[2018-02-03] MEDS ORDERED: TEMAZEPAM 15 MG CAPSULE PO PRN (17:15)
[2018-02-03] MEDS ORDERED: oxyCODONE/APAP 5/325 1 TAB TABLET PO PRN (17:15)
[2018-02-03] MEDS ORDERED: IBUPROFEN 800 MG TABLET. PO PRN (17:30)
[2018-02-03 19:11] VITALS: BP 117/71
[2018-02-03] MEDS ORDERED: FAMOTIDINE 20 MG TABLET. PO SCH (21:00)
[2018-02-03] MEDS ORDERED: ATORVASTATIN CALCIUM 40 MG TABLET. PO SCH (21:00)
[2018-02-03 23:16] VITALS: BP 111/60
[2018-02-04 04:16] LABS: BASO # 0.1 x10^3/uL (0.0-0.2); BASO % 1 % (0-3); EOS # 0.2 x10^3/uL (0.0-0.7); EOS % 2 % (0-3); HEMATOCRIT 33.9 % (36.0-47.0); HEMOGLOBIN 11.5 g/dL (12.0-15.5); LYMPH # 1.5 x10^3/uL (1.0-4.8); LYMPH % 19 % (24-48); MEAN CORPUSCULAR HEMOGLOBIN 30 pg (25-35); MEAN CORPUSCULAR HGB CONC 34 g/dL (31-37); MEAN CORPUSCULAR VOLUME 90 fL (79-100); MONO # 0.7 x10^3/uL (0.0-1.1); MONO % 9 % (0-9); NEUT # 5.3 x10^3uL (1.8-7.7); NEUT % 69 % (31-73); PLATELET COUNT 166 x10^3/uL (140-400); RED BLOOD COUNT 3.79 x10^6/uL (3.50-5.40); RED CELL DISTRIBUTION WIDTH 16.7 % (11.5-14.5); WHITE BLOOD COUNT 7.7 x10^3/uL (4.0-11.0)
[2018-02-04 05:17] LABS: ALBUMIN 3.2 g/dL (3.4-5.0); ALBUMIN/GLOBULIN RATIO 0.8 (1.0-1.7); CALCIUM 8.7 mg/dL (8.5-10.1); TOTAL BILIRUBIN 0.3 mg/dL (0.2-1.0); TOTAL PROTEIN 7.1 g/dL (6.4-8.2)
[2018-02-04] MEDS: METOPROLOL TART IMMED RELEASE 25 MG TABLET. PO SCH ×2 (06:00→11:04)
[2018-02-04 06:11] VITALS: BP 136/80
[2018-02-04] MEDS ORDERED: fentaNYL PF VIAL 100 MCG/2 ML VIAL IV PRN ×2 (07:00)
[2018-02-04] MEDS ORDERED: LIDOCAINE 1% PF 2 ML VIAL. ID PRN (07:00)
[2018-02-04] MEDS ORDERED: IV RINGERS,LACTATED 1000ML 1,000 ML IV SCH (07:00)
[2018-02-04] MEDS ORDERED: BENZOCAINE ONE 20% MUCOSAL SPRAY. (07:33)
[2018-02-04] MEDS ORDERED: LIDOCAINE 2% TOPICAL JELLY 5GM TUBE. TP ONE (07:33)
[2018-02-04] MEDS ORDERED: LIDOCAINE 2% VISCOUS 15 ML SOLUTION. ONE (07:33)
[2018-02-04] MEDS ORDERED: PROPOFOL 20 ML IV ONE (07:53)
[2018-02-04] MEDS ORDERED: LIDOCAINE 2% 100 MG/5 ML SYRINGE. ONE (08:08)
[2018-02-04] MEDS ORDERED: LOSARTAN POTASSIUM 50 MG TABLET. PO SCH (09:00)
--- NOTE | 2018-02-04 10:38 | CARD ---
MR#: [id number] Date of Study: 02/04/2018 Ordering Physician: LEROY BUTTERFIELD, Referring Physician: MISBAH OVIEDO, Tech: HALEY Santos APPROVED REPORT EXAM: Two-dimensional and M-mode echocardiogram with Doppler and color Doppler. INDICATION Atrial Fibrillation Reason For Test : Rule out cardiac source of emboli. PROCEDURE After obtaining informed consent, patient underwent transesophageal echo in the PACU. Type of Sedation : General Anesthesia Sedation was administered by Anesthesia service. The GERARDO was performed without complications. Synchronized Cardioversion acheived with 200 Joules after 1 attempt(s). Throughout the procedure, the blood pressure, pulse oximetry, cardiac rhythm, and rate were monitored . LEFT VENTRICLE The left ventricle is normal size. There is normal left ventricular wall thickness. The left ventricu lar systolic function is normal and the ejection fraction is within normal range. EF 55% There is nor mal LV segmental wall motion. RIGHT VENTRICLE The right ventricle is normal size. There is normal right ventricular wall thickness. The right ventr icular systolic function is normal. ATRIA The left atrium size is normal. The right atrium size is normal. The interatrial septum is intact wit h no evidence for an atrial septal defect or patent foramen ovale as noted on 2-D or Doppler imaging. There is no thrombus noted in the left atrial appendage. AORTIC VALVE The aortic valve is mildly thickened but opens well. Doppler and Color Flow revealed no significant a ortic regurgitation. There is no significant aortic valvular stenosis. MITRAL VALVE The mitral valve is thickened but opens well. A mild mitral valve prolapse is present. There is no mi tral valve stenosis. Doppler and Color-flow revealed mild mitral regurgitation. TRICUSPID VALVE The tricuspid valve leaflets are thickened , but open well. Doppler and Color Flow revealed no tricus pid valve regurgitation noted. There is no tricuspid valve prolapse or vegetation. There is no tricus pid valve stenosis. PULMONIC VALVE The pulmonic valve is not well visualized. Doppler and Color Flow revealed no pulmonic valvular regur gitation. There is no pulmonic valvular stenosis. GREAT VESSELS The aortic root is normal in size. The IVC is normal in size and collapses >50% with inspiration. Critical Notification Critical Value: No <Conclusion> The left ventricular systolic function is normal and the ejection fraction is within normal range. EF 55% There is normal LV segmental wall motion. No ELIJAH thrombus. Successful CVN to SR. Signed by : Berlin Haji, Electronically Approved : 02/04/2018 10:37:35
[2018-02-04] MEDS ORDERED: BENZOCAINE/MENTHOL LOZENGE. PO PRN (10:45)
[2018-02-04] MEDS: ANTI-COAG MONITOR BY PHARMACY. MC PRN (10:58)
[2018-02-04 11:00] VITALS: BP 140/58
[2018-02-04] MEDS: LEVOTHYROXINE 25 MCG TABLET. PO SCH (11:00)
[2018-02-04] MEDS: DRONEDARONE HCL 400 MG TABLET PO SCH (11:02)
[2018-02-04] MEDS: ASPIRIN CHEWABLE 81 MG TABLET. PO SCH (11:04)
[2018-02-04] MEDS: APIXABAN 5 MG TABLET. PO SCH (11:05)
[2018-02-04] MEDS: CALCIUM CARB/VIT D3 500/200 TABLET. PO SCH (11:08)
[2018-02-04 12:35] VITALS: BP 116/60
[2018-02-04] MEDS ORDERED: LOSA50TA2 PO (12:53)
--- NOTE | 2018-02-04 12:55 | PDOC3 ---
Discharge Summary Visit Information Date of Admission: Feb 02, 2018 Date of Discharge: Feb 04, 2018 Admitting Diagnosis: chest pain Final Diagnosis angina, chest pain afib,, tachy acute diastolic CHF, afib htn dm2, obesity, BMI 34 Problems Medical Problems: (1) Atrial fibrillation Status: Acute (2) Chest pain Status: Acute (3) Elevated troponin Status: Acute Brief Hospital Course Allergies Allergies Coded Allergies Type Severity Reaction Last Updated Verified morphine Allergy Severe SOB, ANAPHYLAXIS 11/27/17 Yes Vital Signs Vital Signs Date Time Temp Pulse Resp B/P (MAP) Pulse Ox O2 Delivery O2 Flow Rate FiO2 02/04/18 12:35 56 16 116/60 (78) 98 Room Air 02/04/18 09:14 97.6 97.6 02/04/18 08:37 2 Lab Results Laboratory Tests Test 02/02/18 15:35 02/02/18 16:30 02/02/18 17:02 02/02/18 19:15 White Blood Count 8.4 x10^3/uL (4.0-11.0) Red Blood Count 3.89 x10^6/uL (3.50-5.40) Hemoglobin 11.7 g/dL (12.0-15.5) Hematocrit 34.4 % (36.0-47.0) Mean Corpuscular Volume 89 fL (79-100) Mean Corpuscular Hemoglobin 30 pg (25-35) Mean Corpuscular Hemoglobin Concent 34 g/dL (31-37) Red Cell Distribution Width 16.3 % (11.5-14.5) Platelet Count 161 x10^3/uL (140-400) Neutrophils (%) (Auto) 72 % (31-73) Lymphocytes (%) (Auto) 18 % (24-48) Monocytes (%) (Auto) 8 % (0-9) Eosinophils (%) (Auto) 2 % (0-3) Basophils (%) (Auto) 1 % (0-3) Neutrophils # (Auto) 6.0 x10^3uL (1.8-7.7) Lymphocytes # (Auto) 1.5 x10^3/uL (1.0-4.8) Monocytes # (Auto) 0.7 x10^3/uL (0.0-1.1) Eosinophils # (Auto) 0.1 x10^3/uL (0.0-0.7) Basophils # (Auto) 0.0 x10^3/uL (0.0-0.2) Sodium Level 137 mmol/L (136-145) Potassium Level 4.0 mmol/L (3.5-5.1) Chloride Level 102 mmol/L (98-107) Carbon Dioxide Level 29 mmol/L (21-32) Anion Gap 6 (6-14) Blood Urea Nitrogen 18 mg/dL (7-20) Creatinine 1.0 mg/dL (0.6-1.0) Estimated GFR (Cockcroft-Gault) 55.0 BUN/Creatinine Ratio 18 (6-20) Glucose Level 143 mg/dL (70-99) Calcium Level 9.6 mg/dL (8.5-10.1) Magnesium Level 1.5 mg/dL (1.8-2.4) Total Bilirubin 0.4 mg/dL (0.2-1.0) Aspartate Amino Transf (AST/SGOT) 23 U/L (15-37) Alanine Aminotransferase (ALT/SGPT) 44 U/L (14-59) Alkaline Phosphatase 93 U/L (46-116) Creatine Kinase 45 U/L (26-192) Creatine Kinase MB (Mass) < 0.5 ng/mL (0.0-3.6) Creatine Kinase MB Relative Index % (0-4) Troponin I Quantitative 0.286 ng/mL (0.000-0.055) 0.261 ng/mL (0.000-0.055) SM-Cds-S-Type Natriuretic Peptide 2354 pg/mL (0-124) Total Protein 7.2 g/dL (6.4-8.2) Albumin 3.3 g/dL (3.4-5.0) Albumin/Globulin Ratio 0.8 (1.0-1.7) Thyroid Stimulating Hormone (TSH) 3.390 uIU/mL (0.358-3.74) Prothrombin Time 15.8 SEC (11.7-14.0) Prothromb Time International Ratio 1.3 (0.8-1.1) Urine Collection Type Unknown Urine Color Yellow Urine Clarity Clear Urine pH 7.0 Urine Specific [place] 1.015 Urine Protein Negative mg/dL (NEG-TRACE) Urine Glucose (UA) Negative mg/dL (NEG) Urine Ketones (Stick) Negative mg/dL (NEG) Urine Blood Negative (NEG) Urine Nitrite Negative (NEG) Urine Bilirubin Negative (NEG) Urine Urobilinogen Dipstick 0.2 mg/dL (0.2 mg/dL) Urine Leukocyte Esterase Negative (NEG) Urine RBC 0 /HPF (0-2) Urine WBC Occ /HPF (0-4) Urine Squamous Epithelial Cells Mod /LPF Urine Bacteria Few /HPF (0-FEW) Urine Opiates Screen Neg (NEG) Urine Methadone Screen Neg (NEG) Urine Barbiturates Neg (NEG) Urine Phencyclidine Screen Neg (NEG) Urine Amphetamine/Methamphetamine Neg (NEG) Urine Benzodiazepines Screen Neg (NEG) Urine Cocaine Screen Neg (NEG) Urine Cannabinoids Screen Neg (NEG) Urine Ethyl Alcohol Neg (NEG) Test 02/02/18 21:35 02/03/18 04:55 02/03/18 07:24 02/03/18 12:01 Troponin I Quantitative 0.254 ng/mL (0.000-0.055) White Blood Count 7.4 x10^3/uL (4.0-11.0) Red Blood Count 4.16 x10^6/uL (3.50-5.40) Hemoglobin 12.5 g/dL (12.0-15.5) Hematocrit 37.4 % (36.0-47.0) Mean Corpuscular Volume 90 fL (79-100) Mean Corpuscular Hemoglobin 30 pg (25-35) Mean Corpuscular Hemoglobin Concent 34 g/dL (31-37) Red Cell Distribution Width 16.8 % (11.5-14.5) Platelet Count 178 x10^3/uL (140-400) Neutrophils (%) (Auto) 66 % (31-73) Lymphocytes (%) (Auto) 23 % (24-48) Monocytes (%) (Auto) 8 % (0-9) Eosinophils (%) (Auto) 2 % (0-3) Basophils (%) (Auto) 1 % (0-3) Neutrophils # (Auto) 4.9 x10^3uL (1.8-7.7) Lymphocytes # (Auto) 1.7 x10^3/uL (1.0-4.8) Monocytes # (Auto) 0.6 x10^3/uL (0.0-1.1) Eosinophils # (Auto) 0.2 x10^3/uL (0.0-0.7) Basophils # (Auto) 0.0 x10^3/uL (0.0-0.2) Sodium Level 140 mmol/L (136-145) Potassium Level 4.0 mmol/L (3.5-5.1) Chloride Level 102 mmol/L (98-107) Carbon Dioxide Level 30 mmol/L (21-32) Anion Gap 8 (6-14) Blood Urea Nitrogen 14 mg/dL (7-20) Creatinine 0.9 mg/dL (0.6-1.0) Estimated GFR (Cockcroft-Gault) 62.1 BUN/Creatinine Ratio 16 (6-20) Glucose Level 132 mg/dL (70-99) Calcium Level 9.4 mg/dL (8.5-10.1) Magnesium Level 1.7 mg/dL (1.8-2.4) Total Bilirubin 0.5 mg/dL (0.2-1.0) Aspartate Amino Transf (AST/SGOT) 22 U/L (15-37) Alanine Aminotransferase (ALT/SGPT) 41 U/L (14-59) Alkaline Phosphatase 93 U/L (46-116) Total Protein 7.8 g/dL (6.4-8.2) Albumin 3.4 g/dL (3.4-5.0) Albumin/Globulin Ratio 0.8 (1.0-1.7) Glucose (Fingerstick) 139 mg/dL (70-99) 127 mg/dL (70-99) Test 02/03/18 16:36 02/03/18 20:42 02/04/18 03:05 Glucose (Fingerstick) 136 mg/dL (70-99) 142 mg/dL (70-99) White Blood Count 7.7 x10^3/uL (4.0-11.0) Red Blood Count 3.79 x10^6/uL (3.50-5.40) Hemoglobin 11.5 g/dL (12.0-15.5) Hematocrit 33.9 % (36.0-47.0) Mean Corpuscular Volume 90 fL (79-100) Mean Corpuscular Hemoglobin 30 pg (25-35) Mean Corpuscular Hemoglobin Concent 34 g/dL (31-37) Red Cell Distribution Width 16.7 % (11.5-14.5) Platelet Count 166 x10^3/uL (140-400) Neutrophils (%) (Auto) 69 % (31-73) Lymphocytes (%) (Auto) 19 % (24-48) Monocytes (%) (Auto) 9 % (0-9) Eosinophils (%) (Auto) 2 % (0-3) Basophils (%) (Auto) 1 % (0-3) Neutrophils # (Auto) 5.3 x10^3uL (1.8-7.7) Lymphocytes # (Auto) 1.5 x10^3/uL (1.0-4.8) Monocytes # (Auto) 0.7 x10^3/uL (0.0-1.1) Eosinophils # (Auto) 0.2 x10^3/uL (0.0-0.7) Basophils # (Auto) 0.1 x10^3/uL (0.0-0.2) Sodium Level 138 mmol/L (136-145) Potassium Level 4.0 mmol/L (3.5-5.1) Chloride Level 104 mmol/L (98-107) Carbon Dioxide Level 26 mmol/L (21-32) Anion Gap 8 (6-14) Blood Urea Nitrogen 16 mg/dL (7-20) Creatinine 1.0 mg/dL (0.6-1.0) Estimated GFR (Cockcroft-Gault) 55.0 BUN/Creatinine Ratio 16 (6-20) Glucose Level 135 mg/dL (70-99) Calcium Level 8.7 mg/dL (8.5-10.1) Total Bilirubin 0.3 mg/dL (0.2-1.0) Aspartate Amino Transf (AST/SGOT) 20 U/L (15-37) Alanine Aminotransferase (ALT/SGPT) 35 U/L (14-59) Alkaline Phosphatase 86 U/L (46-116) Total Protein 7.1 g/dL (6.4-8.2) Albumin 3.2 g/dL (3.4-5.0) Albumin/Globulin Ratio 0.8 (1.0-1.7) Laboratory Tests Test 02/03/18 16:36 02/03/18 20:42 02/04/18 03:05 Glucose (Fingerstick) 136 mg/dL (70-99) 142 mg/dL (70-99) White Blood Count 7.7 x10^3/uL (4.0-11.0) Red Blood Count 3.79 x10^6/uL (3.50-5.40) Hemoglobin 11.5 g/dL (12.0-15.5) Hematocrit 33.9 % (36.0-47.0) Mean Corpuscular Volume 90 fL (79-100) Mean Corpuscular Hemoglobin 30 pg (25-35) Mean Corpuscular Hemoglobin Concent 34 g/dL (31-37) Red Cell Distribution Width 16.7 % (11.5-14.5) Platelet Count 166 x10^3/uL (140-400) Neutrophils (%) (Auto) 69 % (31-73) Lymphocytes (%) (Auto) 19 % (24-48) Monocytes (%) (Auto) 9 % (0-9) Eosinophils (%) (Auto) 2 % (0-3) Basophils (%) (Auto) 1 % (0-3) Neutrophils # (Auto) 5.3 x10^3uL (1.8-7.7) Lymphocytes # (Auto) 1.5 x10^3/uL (1.0-4.8) Monocytes # (Auto) 0.7 x10^3/uL (0.0-1.1) Eosinophils # (Auto) 0.2 x10^3/uL (0.0-0.7) Basophils # (Auto) 0.1 x10^3/uL (0.0-0.2) Sodium Level 138 mmol/L (136-145) Potassium Level 4.0 mmol/L (3.5-5.1) Chloride Level 104 mmol/L (98-107) Carbon Dioxide Level 26 mmol/L (21-32) Anion Gap 8 (6-14) Blood Urea Nitrogen 16 mg/dL (7-20) Creatinine 1.0 mg/dL (0.6-1.0) Estimated GFR (Cockcroft-Gault) 55.0 BUN/Creatinine Ratio 16 (6-20) Glucose Level 135 mg/dL (70-99) Calcium Level 8.7 mg/dL (8.5-10.1) Total Bilirubin 0.3 mg/dL (0.2-1.0) Aspartate Amino Transf (AST/SGOT) 20 U/L (15-37) Alanine Aminotransferase (ALT/SGPT) 35 U/L (14-59) Alkaline Phosphatase 86 U/L (46-116) Total Protein 7.1 g/dL (6.4-8.2) Albumin 3.2 g/dL (3.4-5.0) Albumin/Globulin Ratio 0.8 (1.0-1.7) Brief Hospital Course Ms. Mesa is a 67 old admit with chest pain, afib RVR metoprolol and cardizem. multaq and eliquis. CV performed GERARDO and cardioversion, then sinus at DC intractable coughing, stop william, start cozaar Discharge Information Condition at Discharge: Improved Follow Up: Weeks Disposition/Orders: D/C to Home Scheduled Apixaban (Eliquis) 5 Mg Tablet, 5 MG PO BID, (Reported) Entered as Reported by: Nataliia Carrizales on 06/28/15 1505 Last Action: HELD on 02/02/182245 by MISBAH OVIEDO MD Aspirin (Aspirin) 81 Mg Tab.chew, 81 MG PO DAILY16, (Reported) Entered as Reported by: JESUS MADERA RPH on 06/26/15 1436 Last Action: Continued on 02/02/182245 by MISBAH OVIEDO MD Atorvastatin Calcium (Atorvastatin Calcium) 80 Mg Tablet, 80 MG PO HS for FOR CHOLESTEROL, Ref 0 (Reported) Entered as Reported by: JESUS MADERA RPH on 06/26/15 1436 Last Action: Converted on 02/02/182245 by MISBAH OVIEDO MD Calcium Carbonate/Vitamin D3 (Calcium 600 + Vit D 800 Tab) 1 Each Tablet, 1 EACH PO BID, (Reported) Entered as Reported by: HUGO RAYA on 10/14/17 1551 Last Action: Converted on 02/02/182245 by MISBAH OVIEDO MD Diltiazem Hcl (Diltiazem 24HR Cd) 180 Mg Cap.er.24h, 180 MG PO DAILY16, ( Reported) Entered as Reported by: HUGO RAYA on 10/14/17 1549 Last Action: Converted on 02/02/182245 by MISBAH OVIEDO MD Dronedarone Hcl (Multaq) 400 Mg Tablet, 1 TAB PO BID, #180 Ref 3 (Reported) Entered as Reported by: DENISE MOODY on 11/26/17 1057 Last Action: Continued on 02/02/182245 by MISBAH OVIEDO MD Levothyroxine Sodium (Levothyroxine Sodium) 25 Mcg Tablet, 1 TAB PO DAILY, #30 Ref 5 (Reported) Entered as Reported by: JENNIFER CERDA on 05/29/16 1546 Last Action: Converted on 02/02/182245 by MISBAH OVIEDO MD Lisinopril (Lisinopril) 40 Mg Tablet, 40 MG PO DAILY for FOR HYPERTENSION, #30 Ref 0 (Reported) Entered as Reported by: JESUS MADERA RP on 06/26/15 1436 Last Action: Continued on 02/02/182245 by MISBAH OVIEDO MD Losartan Potassium (Cozaar) 50 Mg Tablet, 100 MG PO DAILY, #30 Ref 3 Prescribed by: GERRY BLANDON on 02/04/18 1253 Metformin Hcl (Metformin Hcl Er) 500 Mg Tab.er.24h, 1 TAB PO BIDWMEALS, #90 Ref 3 (Reported) Entered as Reported by: LATRICIA OBRIEN on 11/24/14 1704 Last Action: Converted on 02/02/182245 by MISBAH OVIEDO MD Metoprolol Tartrate (Metoprolol Tartrate) 25 Mg Tablet, 1 TAB PO BID, #180 Ref 1 (Reported) Entered as Reported by: JEREMY MANNING on 09/23/17 1553 Last Action: Continued on 02/02/182245 by MISBAH OVIEDO MD Scheduled PRN Loratadine (Claritin) 10 Mg Tablet, 10 MG PO PRN DAILY PRN for ALLERGIES, ( Reported) Entered as Reported by: DENISE MOODY on 11/26/17 1136 Last Action: Converted on 02/02/182245 by MISBAH OVIEDO MD Ranitidine Hcl (Ranitidine Hcl) 300 Mg Capsule, 300 MG PO DAILY PRN for HEARTBURN / GAS, (Reported) Entered as Reported by: JESUS MADERA RPH on 06/26/15 1436 Last Action: Converted on 02/02/182245 by MISBAH OVIEDO MD Ropinirole Hcl (Requip) 0.5 Mg Tablet, 1 TAB PO QHS PRN for MUSCLE SPASMS, #30 Ref 1 (Reported) Entered as Reported by: LATRICIA OBRIEN on 11/24/14 1704 Last Action: Converted on 02/02/182245 by MISBAH OVIEDO MD Discontinued Medications Benzonatate (Tessalon Perle) 100 Mg Capsule, 1 CAP PO TID, #21 (Reported) Entered as Reported by: HEIDE KINNEY on 10/19/17 1108 Last Action: Discontinued on 02/02/181943 by GERRY Aleman MD Feb 04, 2018 12:55
--- NOTE | 2018-02-04 13:37 | EKG ---
[facility] [address] [place] [address] Test Date: 2018-02-04 Test Time: 13:31:37 Pat Name: ARVIN LENNON Department: Room: 201 1 Gender: F Reimbursement Consultant: GUS : [id number] Requested By: WADE HAJI Order Number: [id number] Reading MD: Wade Haji MD Measurements Intervals [place] Rate: 65 P: 47 HI: 164 QRS: 79 QRSD: 86 T: 101 QT: 444 QTc: 463 Interpretive Statements SINUS RHYTHM NON-SPECIFIC ST/T CHANGES Electronically Signed On 02-06-2018 6:50:57 CDT by Wade Haji MD
[2018-02-04] MEDS ORDERED: METO50TA6 PO (14:21)
[2018-02-04] MEDS ORDERED: METOPROLOL TART IMMED RELEASE 25 MG TABLET. PO SCH (21:00)
[2018-02-05] MEDS ORDERED: metFORMIN 500 MG TABLET PO SCH (08:00)
== END 2018-02-04 15:26 | disposition home or self-care (01) | DRG 308 ==
LOC: ER 14:44 → 2 NORTH 16:57
PROVIDERS: ADMIT Family Medicine; ATTEND Family Medicine
DX: I48.91 Unspecified atrial fibrillation (principal); I50.31 Acute diastolic (congestive) heart failure; I20.9 Angina pectoris, unspecified; E66.01 Morbid (severe) obesity due to excess calories; E03.9 Hypothyroidism, unspecified; E78.00 Pure hypercholesterolemia, unspecified; E78.5 Hyperlipidemia, unspecified; E83.42 Hypomagnesemia; G25.81 Restless legs syndrome; I11.0 Hypertensive heart disease with heart failure; J30.9 Allergic rhinitis, unspecified; R32 Unspecified urinary incontinence; K21.9 Gastro-esophageal reflux disease without esophagitis; M19.90 Unspecified osteoarthritis, unspecified site; Z96.653 Presence of artificial knee joint, bilateral; G43.909 Migraine, unspecified, not intractable, without status migrainosus; Z68.34 Body mass index [BMI] 34.0-34.9, adult; Z82.49 Family history of ischemic heart disease and other diseases of the circulatory system; Z85.3 Personal history of malignant neoplasm of breast; Z90.13 Acquired absence of bilateral breasts and nipples; Z90.710 Acquired absence of both cervix and uterus; Z87.81 Personal history of (healed) traumatic fracture; Z88.5 Allergy status to narcotic agent; Z98.49 Cataract extraction status, unspecified eye
CPT/HCPCS: 36415; 71045; 71275; 74174; 80053; 80307; 81001; 82553; 82962; 83735; 83880; 84443; 84484; 85025; 85610; 92960; 93005; 93312; 93325; 96365; J2704; J3010; J3475; J7120; Q9967; 99285-25; G0479

== ENCOUNTER → 2018-05-14 | Outpatient (CLI) | payer MEDICARE, OTHER ==
[~2018-05-14] MED LIST changes: +HYDR-3165 PO; -HYDR-965 PO; +LOSA-73 PO; +METO50TA6 PO
--- NOTE | 2018-05-14 11:18 | RAD ---
PQRS Compliance statement: One or more of the following individualized dose reduction techniques were utilized for this examination: 1. Automated exposure control. 2. Adjustment of the mA and/or kV according to patient size. 3. Use of iterative reconstruction technique. Indication:LUNG NODULE, PRIOR SENT TECHNIQUE: CT chest without IV contrast with multiplanar reformats. COMPARISON: CT chest from 09/18/2017 FINDINGS: Heart is normal in size. No pericardial or pleural effusion. Coronary artery calcifications are seen. Clear neck base. No enlarged axillary, mediastinal adenopathy. Evaluation of hilar lymphadenopathy is limited due to lack of IV contrast. Central airways are patent. Couple of nodular opacities in the posterior medial aspect of the right upper lobe, the largest measuring 4 mm (series 3 image 73). Stable 3 mm subpleural nodular opacity in the right upper lobe (series 3 image 150),. Stable triangular opacity in the right lower lobe (series 3 image 196). Stable 4 mm triangular opacity in the left lower lobe (series 3 image 211). Diffuse hepatic steatosis. Otherwise, noncontrast appearance of the liver, spleen, gallbladder, pancreas, adrenals and kidneys within normal limits. No suspicious bony lesion. IMPRESSION: Multiple bilateral pulmonary nodular opacities, nonspecific but less likely to be metastasis. Follow-up CT chest in 6 months recommended. Electronically signed by: Nestor Lawson DO (05/14/2018 11:15 AM) [facility]
== END | disposition home or self-care (01) ==
LOC: CT 12:31
PROVIDERS: ATTEND Internal Medicine Critical Care Medicine
DX: R91.1 Solitary pulmonary nodule (principal); I25.10 Atherosclerotic heart disease of native coronary artery without angina pectoris; K76.0 Fatty (change of) liver, not elsewhere classified
CPT/HCPCS: 71250

== ENCOUNTER → 2018-11-11 | Outpatient (CLI) | payer MEDICARE, OTHER ==
[~2018-11-11] MED LIST changes: +MONT10TA49 PO; -MONT10TA9 PO
--- NOTE | 2018-11-11 12:52 | KCIC ---
MR of the right shoulder HISTORY: Right shoulder pain. Supraspinatus calcification. TECHNIQUE: Routine multiplanar sequences are obtained. FINDINGS: Acromioclavicular joint is degenerative with undersurface mass effect. There is diffuse thinning and irregularity of the supraspinatus and infraspinatus tendon with partial thickness undersurface tearing. This appears very deep at the supraspinatus tendon, 90% across. No definite complete full-thickness rupture or retraction. Subscapularis tendinosis, there may be mild partial tearing but no high-grade tear. Trace subdeltoid bursal effusion. Trace glenohumeral joint effusion. Degenerative signal within the superior labrum with a degenerative tear. Biceps tendinosis. No aggressive bone destruction or acute fracture. No acute soft tissue abnormality. IMPRESSION: 1. Diffuse rotator cuff tendinosis and partial tearing. Deep undersurface tearing of the supraspinatus tendon. 2. Degenerative tear of the superior labrum. 3. Biceps tendinosis. Electronically signed by: Topher Anaya MD (11/11/2018 12:49 PM) [facility]
== END | disposition home or self-care (01) ==
LOC: KCIC MRI 10:32
PROVIDERS: ATTEND Orthopaedic Surgery
DX: M25.411 Effusion, right shoulder (principal); M75.101 Unspecified rotator cuff tear or rupture of right shoulder, not specified as traumatic; M25.811 Other specified joint disorders, right shoulder
CPT/HCPCS: 73221

== ENCOUNTER → 2019-01-27 | Outpatient (CLI) | payer MEDICARE, OTHER ==
--- NOTE | 2019-01-27 11:43 | CARD ---
MR#: [id number] Date of Study: 01/27/2019 Ordering Physician: WADE CARDONA, Referring Physician: WADE CARDONA, Tech: Jenelle Currie TOBY APPROVED REPORT EXAM: Two-dimensional and M-mode echocardiogram with Doppler and color Doppler. Other Information Quality : Good INDICATION Paroxysmal Atrial Fibrillation 2D DIMENSIONS RVDd2.9 (2.9-3.5cm)Left Atrium(2D)4.2 (1.6-4.0cm) IVSd1.0 (0.7-1.1cm)Aortic Root(2D)2.6 (2.0-3.7cm) LVDd5.1 (3.9-5.9cm)LVOT Diameter1.9 (1.8-2.4cm) PWd0.7 (0.7-1.1cm)LVDs2.9 (2.5-4.0cm) FS (%) 30.0 %SV92.7 ml LVEF(%)60.0 (>50%) Aortic Valve AoV Peak Emre.150.3cm/sAoV VTI35.6cm AO Peak GR.9.0mmHgLVOT Peak Emre.124.9cm/s LVOT VTI 29.19cmAO Mean GR.5mmHg LIZ (VMAX)2.33vp6ZFG (VTI)2.25cm2 Mitral Valve MV E Mtgxinni30.1cm/sMV DECEL [id number] MV A Pxmvqpvo57.8cm/sMV XTH79sg E/A Ratio0.9MVA (PHT)6.10cm2 TDI E/Lateral E'13.8E/Medial E'17.3 Tricuspid Valve TR P. Sblxvxov752wz/sRAP PBHIIHPX1rxRh TR Peak Gr.38ukRnZLYJ49tbUf Pulmonary Vein S1 Xwpllize13.0cm/sD2 Egedrcjv91.2cm/s LEFT VENTRICLE The left ventricle is normal size. There is normal left ventricular wall thickness. The left ventricu lar systolic function is normal and the ejection fraction is within normal range. The Ejection Fracti on is 55-60%. There is normal LV segmental wall motion. Transmitral Doppler flow pattern is Grade I-a bnormal relaxation pattern. RIGHT VENTRICLE The right ventricle is normal size. The right ventricular systolic function is normal. ATRIA The left atrium is mildly dilated. The right atrium size is normal. The interatrial septum is intact with no evidence for an atrial septal defect or patent foramen ovale as noted on 2-D or Doppler imagi ng. AORTIC VALVE The aortic valve is calcified but opens well. Doppler and Color Flow revealed no significant aortic r egurgitation. There is no significant aortic valvular stenosis. MITRAL VALVE The mitral valve is calcified but opens well. There is no evidence of mitral valve prolapse. There is no mitral valve stenosis. Doppler and Color-flow revealed mild mitral regurgitation. TRICUSPID VALVE The tricuspid valve is normal in structure and function. Doppler and Color Flow revealed trace tricus pid regurgitation. The PA pressure was estimated at 27 mmHg. There is no tricuspid valve stenosis. PULMONIC VALVE The pulmonic valve is not well visualized. Doppler and Color Flow revealed no pulmonic valvular regur gitation. There is no pulmonic valvular stenosis. GREAT VESSELS The aortic root is normal in size. The ascending aorta is normal in size. The IVC is normal in size a nd collapses >50% with inspiration. PERICARDIAL EFFUSION There is no evidence of significant pericardial effusion. Critical Notification Critical Value: No <Conclusion> The left ventricular systolic function is normal and the ejection fraction is within normal range. Th e Ejection Fraction is 55-60%. There is normal LV segmental wall motion. Signed by : Wade Cardona, Electronically Approved : 01/27/2019 11:43:05
== END | disposition home or self-care (01) ==
LOC: ECHO 09:33
PROVIDERS: ATTEND Internal Medicine Cardiovascular Disease
DX: I08.0 Rheumatic disorders of both mitral and aortic valves (principal); I31.3 Pericardial effusion (noninflammatory); I48.0 Paroxysmal atrial fibrillation
CPT/HCPCS: 93306

== ENCOUNTER → 2019-02-09 | Outpatient (CLI) | payer MEDICARE, OTHER ==
[~2019-02-09] MED LIST changes: +METF500T11 PO; -METF500T9 PO
--- NOTE | 2019-02-09 13:30 | RAD ---
Examination: CT CHEST WO CONTRAST History: Lung nodule Comparison/Correlation: 09/17/2017 CTA of the chest, 11/27/2017 CT chest without contrast, 02/02/2018 CTA of the chest abdomen and pelvis, 05/14/2018 CT chest without contrast Findings: Axial images of the chest were obtained without contrast. Sagittal and coronal reformatted images were provided. Coronary arterial calcification is noted. No enlarged thoracic lymph nodes. Small hiatal hernia is present. Small focus of subpleural scarring at the posterior upper lung eledr noted adjacent to the pleura without significant change. At the right anterior mid thoracic level, nodule measuring less than 0.3 cm diameter is present on axial image 25 of series 2 and this is unchanged. No other nodule at the right lower lobe posterior lower lung field level is stable on axial image 39 of series 2 measuring 0.4 cm diameter. Left lower lung field 0.4 cm diameter nodule is stable on axial image 44 of series 2. Subtle groundglass infiltrates are present at the lung bases greater on the left. Largest of these measures up to 2.3 cm diameter. No pleural effusion or pneumothorax. Bony structures are unremarkable for the patient's age. Fatty infiltration of liver is present. Impression: Nodules are stable. No new pulmonary nodule. Considering stability since 09/18/2017 CTA of the chest, benign etiology is presumed. New small regions of groundglass infiltrate are seen at the lung bases primarily on the left. Correlate clinically in determining interval follow-up to assess for resolution. Hiatal hernia. Fatty infiltration of the liver. PQRS Compliance Statement: One or more of the following individualized dose reduction techniques were utilized for this examination: 1. Automated exposure control 2. Adjustment of the mA and/or kV according to patient size 3. Use of iterative reconstruction technique Electronically signed by: James Stewart MD (02/09/2019 1:27 PM) [facility]
== END | disposition home or self-care (01) ==
LOC: CT 11:03
PROVIDERS: ATTEND Internal Medicine Critical Care Medicine
DX: R91.8 Other nonspecific abnormal finding of lung field (principal); J98.4 Other disorders of lung; I25.10 Atherosclerotic heart disease of native coronary artery without angina pectoris; K44.9 Diaphragmatic hernia without obstruction or gangrene; K76.0 Fatty (change of) liver, not elsewhere classified
CPT/HCPCS: 71250

== ENCOUNTER → 2021-08-27 | Outpatient (CLI) | payer MEDICARE, OTHER ==
[~2021-08-27] MED LIST changes: -CALC600T4 PO; +CALC600T60 PO; -DIGO125T PO; +DIGO125T3 PO; -DRON400T PO; +DRON400T6 PO; -LISI-334 PO; +LISI20TA18 PO; +METF-658 PO; -METF500T11 PO; +MULT-445 PO; -MULT1TAB52 PO
--- NOTE | 2021-08-27 17:08 | CARD ---
MR#: [id number] Date of Study: 08/27/2021 Ordering Physician: WADE CARDONA, Referring Physician: WADE CARDONA, Tech: Jennifer Mesa [facility] APPROVED REPORT EXAM: Two-dimensional and M-mode echocardiogram with Doppler and color Doppler. Other Information Quality : AverageHR: 74bpm INDICATION Atrial Fibrillation RISK FACTORS Hypertension Hyperlipidemia Diabetes 2D DIMENSIONS RVDd3.2 (2.9-3.5cm)Left Atrium(2D)3.5 (1.6-4.0cm) IVSd0.9 (0.7-1.1cm)Aortic Root(2D)2.9 (2.0-3.7cm) LVDd4.3 (3.9-5.9cm)LVOT Diameter2.0 (1.8-2.4cm) PWd1.0 (0.7-1.1cm)LVDs3.2 (2.5-4.0cm) FS (%) 25.0 %SV41.0 ml LVEF(%)49.8 (>50%) Aortic Valve AoV Peak Emre.134.7cm/sAoV VTI32.3cm AO Peak GR.7.3mmHgLVOT Peak Emre.117.9cm/s AO Mean GR.3mmHgAVA (VMAX)2.66cm2 Mitral Valve MV E Dwqebrmh69.9cm/sMV DECEL PFHG021hf MV A Fwoycnmg66.7cm/sE/A Ratio0.7 Pulmonary Valve PV Peak Ljswtnrf76.7cm/s Tricuspid Valve TR P. Guzwygdu295zr/sTR Peak Gr.31mmHg LEFT VENTRICLE The left ventricle is normal size. There is normal left ventricular wall thickness. The left ventricu lar systolic function is normal and the ejection fraction is within normal range. Estimated ejection fraction 55-60%. There is normal LV segmental wall motion. Tissue Doppler imaging reveals moderate le ft ventricular diastolic dysfunction. RIGHT VENTRICLE The right ventricle is normal size. There is normal right ventricular wall thickness. The right ventr icular systolic function is normal. ATRIA The left atrium size is normal. The right atrium size is normal. The interatrial septum is intact wit h no evidence for an atrial septal defect or patent foramen ovale as noted on 2-D or Doppler imaging. AORTIC VALVE The aortic valve is normal in structure and function. Doppler and Color Flow revealed no significant aortic regurgitation. There is no significant aortic valvular stenosis. MITRAL VALVE The mitral valve is normal in structure and function. There is no evidence of mitral valve prolapse. There is no mitral valve stenosis. Doppler and Color-flow revealed mild mitral regurgitation. TRICUSPID VALVE The tricuspid valve is normal in structure and function. Doppler and Color Flow revealed no tricuspid valve regurgitation noted. There is no tricuspid valve stenosis. PULMONIC VALVE Doppler and Color Flow revealed no pulmonic valvular regurgitation. There is no pulmonic valvular nelson nosis. GREAT VESSELS The aortic root is normal in size. The ascending aorta is normal in size. The IVC is normal in size a nd collapses >50% with inspiration. PERICARDIAL EFFUSION There is no evidence of significant pericardial effusion. Critical Notification Critical Value: No <Conclusion> The left ventricular systolic function is normal and the ejection fraction is within normal range. E stimated ejection fraction 55-60%. There is normal LV segmental wall motion. Signed by : Wade Cardona, Electronically Approved : 08/27/2021 17:07:43
== END ==
LOC: ECHO 12:26
PROVIDERS: ATTEND Internal Medicine Cardiovascular Disease
DX: I34.0 Nonrheumatic mitral (valve) insufficiency (principal); I48.0 Paroxysmal atrial fibrillation
CPT/HCPCS: 93306; C8929